=== PATIENT | male | born 1945 | race Caucasian/White ===

== ENCOUNTER 2019-08-02 14:25 | Observation (INO) ==
[2019-08-02] MEDS ORDERED: 0.9 % SODIUM CHLORIDE 1,000 ML IV ONE (14:43)
[2019-08-02] MEDS ORDERED: LACTATED RINGERS 1,000 ML IV SCH (14:45)
--- NOTE | 2019-08-02 14:47 | Emergency Department Note ---
Seizure HPI - General Chief Complaint: Seizure Stated Complaint: Seizure Time Seen by Provider: 08/02/19 14:35 Source: EMS Mode of arrival: EMS - History of Present Illness HPI Narrative: This patient apparently had a grand mal seizure and was still seizing when EMS arrived. They gave him Versed 5 mg and he is now sedated or post ictal. He is awake but not really responding much. He does have a history of a seizure disorder and takes Lamictal. - Related Data Home Medications Medication Instructions Recorded Confirmed cyanocobalamin (vitamin B-12) 100 mcg IM QMONTH ml 09/26/14 01/08/19 1,000 mcg/mL injection solution aspirin 325 mg tablet 81 mg PO QDAY tab 01/08/19 01/08/19 misoprostol 200 mcg tablet 200 mcg PO BID tab 01/08/19 01/08/19 lamotrigine 25 mg tablet 125 mg PO BID tab 03/13/19 03/13/19 Previous Rx's Medication Instructions Recorded losartan 25 mg tablet 25 mg PO QDAY #90 tab 12/21/18 lorazepam 1 mg tablet 1 mg PO ONCE PRN #7 tab 01/08/19 atorvastatin 20 mg tablet 20 mg PO QDAY #90 tab 04/30/19 citalopram 20 mg tablet 20 mg PO QDAY #90 tab 04/30/19 triamcinolone acetonide 0.5 % 1 applic TOPICAL BID #15 g 06/14/19 topical ointment furosemide 20 mg tablet 20 mg PO QDAY #90 tab 06/19/19 potassium chloride 10 mEq 10 meq PO QDAY #90 tab 06/19/19 tablet,extended release Allergies Allergy/AdvReac Type Severity Reaction Status Date / Time No Known Drug Allergies Allergy Verified 08/02/19 14:25 Review of Systems Limitations: ROS unobtainable due to patients medical condition Past Medical History - Past Medical History PMF Narrative: Medical History (Last Reviewed 03/13/19 @ 13:07 by Billy Lord PA-C) Weakness of right side of body (Chronic) Degenerative disc disease, lumbar (Chronic) Chronic low back pain (Chronic) CVA (cerebral vascular accident) (Chronic) Osteoarthritis (Chronic) Peptic ulcer disease (Resolved) Bone neoplasm (Acute) Obesity, morbid (Chronic) Pain, joint, multiple sites (Chronic 09/04/14) Gout (Resolved) Edema (Chronic 06/14/14) Gastrointestinal bleeding (Resolved) 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) Pernicious anemia (Chronic 07/15/14) Past Surgical History (Last Reviewed 03/13/19 @ 13:07 by Billy Lord PA-C) History of arthroscopy of right knee (Acute) History of gastric bypass (Acute) History of repair of left rotator cuff (Acute) S/P skin biopsy (Acute 06/11/14) Family History (Last Reviewed 03/13/19 @ 13:07 by Billy Lord PA-C) Father Chronic obstructive pulmonary disease Mother Essential hypertension Unknown Atherosclerosis of coronary artery Osteoarthrosis and allied disorders Malignant neoplasm Medical history: Denies: CHF, chronic anticoagulation (except ASA 81 qd.), DVT, DM, myocardial infarction, pulmonary embolus Psychiatric history: Reports: anxiety, depression - Social History smoking status: Former smoker Alcohol use: Reports: Daily (He drinks a clamato-beer nightly.) Drug use: Reports: none. Denies: marijuana Physical Exam Limitations: altered mental status General appearance: obtunded Head: atraumatic, normocephalic Eye: Present: normal appearance ENT: Present: normal exam Neck: Present: normal inspection Chest: Present: normal inspection Respiratory: Present: normal lung sounds bilaterally Cardiovascular: Present: regular rate, normal rhythm, normal heart sounds Abdominal: Present: soft. Absent: distention, tenderness Skin: Present: warm, dry Course Vital Signs Temperature 99.1 F H 08/02/19 14:25 Pulse Rate 94 H 08/02/19 14:25 Respiratory Rate 14 08/02/19 14:25 Blood Pressure 91/63 08/02/19 14:25 Pulse Oximetry (%) 96 08/02/19 14:25 Temperature 99.1 F H 08/02/19 14:25 Pulse Rate 59 L 08/02/19 18:37 Respiratory Rate 12 08/02/19 18:37 Blood Pressure 116/77 08/02/19 18:31 Pulse Oximetry (%) 98 08/02/19 18:37 Seizure - MDM Narrative Medical decision making narrative: This patient had another seizure during CT scan and required more Ativan for control. His CT scan is unremarkable for any new change. Patient has been on 175 mg twice a day of Lamictal I talked with his neurologist Dr. Remy Chanel he recommends to going to 200 175 for a week and then 200 twice a day. I discussed the case with the hospitalist and he will be admitted to the hospital. - Lab Data Lab results reviewed: Yes I reviewed the patient's lab results. Result diagrams: 08/02/19 15:08 08/02/19 15:08 Lab Results 08/02/19 08/02/19 08/02/19 Range/Units 15:08 15:08 15:08 WBC 9.2 (4.50-11.00) K/mcL RBC 4.34 L (4.63-6.08) M/mcL Hgb 12.6 L (13.7-17.5) g/dL Hct 39.1 L (40.1-51.0) % MCV 90.1 (80.0-100.0) fL MCH 29.0 (26.0-34.0) pg MCHC 32.2 (31.0-36.0) g/dL RDW 13.6 (11.5-14.5) % Plt Count 182 (140-440) K/mcL MPV 10.0 (7.4-10.4) fL Total Counted 100 Seg Neutrophils % 84 H (38-78) % Band Neutrophils % 1 (0-10) % Lymphocytes % 10 L (15-49) % Monocytes % (Manual) 4 (1-12) % Eosinophils % (Manual) 1 (0-7) % Platelet Estimate Normal (NORMAL) RBC Morphology Normal (NORMAL) Sodium 139 (133-145) mmol/L Potassium 3.9 (3.3-5.1) mmol/L Chloride 99 (96-108) mmol/L Carbon Dioxide 20 L (22-30) mmol/L Anion Gap 20.0 H (8-16) BUN 12 (8-23) mg/dl Creatinine 1.3 H (0.7-1.2) mg/dl GFR Calculation 53 Glucose 96 (70-105) mg/dL Calcium 8.6 (8.6-10.4) mg/dl Total Bilirubin 0.6 (0.0-1.0) mg/dL AST 13 (0-37) U/l ALT 10 (0-40) U/l Alkaline Phosphatase 94 (39-117) U/L NT-Pro-B Natriuret Pep 232.2 (0-450) pg/ml Total Protein 6.9 (5.9-8.4) gm/dL Albumin 3.8 (3.2-5.2) gm/dL Globulin 3.1 (2.2-3.7) gm/dL Albumin/Globulin Ratio 1.2 (1.0-2.3) - Radiology Data Radiology results reviewed: Yes I reviewed the patient's radiology results. Disposition Pt seen by [facility]/PA only: No Clinical Impression: Epileptic seizure Disposition: Xfer As Inpt ([facility]) Condition: Good Instructions: Epilepsy (ED) Referrals: Chase Sommer MD [Primary Care Provider] - Time of Disposition: 18:41
[2019-08-02] MEDS ORDERED: LORazepam 2 MG/ML VIAL IV ONE (15:23)
[2019-08-02] MEDS ORDERED: LORazepam 2 MG/ML VIAL ONE (15:25)
--- NOTE | 2019-08-02 15:38 | Cat Scan Report ---
CLINICAL INFORMATION: Seizure COMPARISON: Head CT without contrast 03/05/2019 TECHNIQUE: 2.5 mm helical slices were obtained in the skull base to vertex. Following reconstruction, axial reformatted images were reviewed at bone and parenchymal windows. The exam was performed using radiation dose optimization techniques including, but not limited to, automated exposure control, adjustment of the mA and/or kV according to patient size and use of iterative reconstruction technique. FINDINGS: The ventricles, sulci, fissures, and cisterns are enlarged compatible with mild atrophy - no subdural hemorrhage or extra-axial fluid collection indicated. Large remote region of encephalomalacia throughout the medial left temporal occipital lobes as before. Patchy chronic ischemic changes in the cerebral white matter are typical for age stable. There is no intracerebral hemorrhage, mass effect or edema. Bone windows show no osseous abnormality. IMPRESSION: Moderate region of encephalomalacia in the medial left temporal occipital lobe as as previously seen Mild atrophy and chronic ischemic changes in the cerebral white matter as previously seen. No acute findings. Interpreted and Authenticated by: Dennis Faustin 08/02/19
[2019-08-02 15:41] LABS: Hematocrit 39.1 % (40.1-51.0); Hemoglobin 12.6 g/dL (13.7-17.5); Mean Cell Volume 90.1 fL (80.0-100.0); Mean Corpuscular HGB Conc 32.2 g/dL (31.0-36.0); Platelet Count 182 K/mcL (140-440); RBC 4.34 M/mcL (4.63-6.08); Red Cell Distribution Width 13.6 % (11.5-14.5); WBC 9.2 K/mcL (4.50-11.00)
[2019-08-02 15:58] LABS: ALT/SGPT 10 U/l (0-40); AST/SGOT 13 U/l (0-37); Albumin 3.8 gm/dL (3.2-5.2); Albumin/Globulin Ratio 1.2 (1.0-2.3); Alkaline Phosphatase 94 U/L (39-117); Bilirubin,Total 0.6 mg/dL (0.0-1.0); Blood Urea Nitrogen 12 mg/dl (8-23); Calcium 8.6 mg/dl (8.6-10.4); Carbon Dioxide 20 mmol/L (22-30); Chloride 99 mmol/L (96-108); Globulin 3.1 gm/dL (2.2-3.7); Glomerular Filtration Rate 53; Glucose 96 mg/dL (70-105)
[2019-08-02 16:26] LABS: Band Neutrophils % 1 % (0-10); Eosinophils % (Manual) 1 % (0-7); Lymphocytes % 10 % (15-49); Monocytes % (Manual) 4 % (1-12); Platelet Estimate NORMAL (NORMAL); RBC Morphology NORMAL (NORMAL); Segmented Neutrophils % 84 % (38-78)
[2019-08-02] MEDS ORDERED: LACTATED RINGERS 1,000 ML IV ONE (16:59)
--- NOTE | 2019-08-02 19:26 | Internal Med History&Physical ---
Medical - H&P: [facility] Patient information: Note initiated : 08/02/19 at 7:23 pm Service Date, if different from initiated Date: [] Patient: Ilir Mejía 74 y/o M admitted on for Seizure. Chief Complaint: [] History of present illness: Mr. Mejía is a 74 year old M Presented to the ED for seizure. History is obtained from chart as patient is sedated from medication. Per EMS patient arrived had a seizure at home report is mild tonic-clonic like activity he was given 5 of Versed patient was drowsy, and in the ED. Patient was taken to CT and had another seizure during CT and was given 1 mg of Ativan. Eventually patient started waking up and moving his head around a bit more responsiveness to voice but still is unable answer questions and speak. When I examined the patient he seemed quite drowsy. He seemed to really awaken to loud voice but unable to gather history from him as he was not verbalizing/ answering questions. ED physician discussed the case with his neurologist Dr. Chanel who is been ti ghtening trading up his Lamictal. He is currently 175 mg twice daily. She recommended to continue titrating up as opposed to adding a second agent. She requested going to 200 at night and 175 in the morning. And then after week going to 200 twice daily. The brain was done which showed no acute abnormalities it showed encephalomalacia from a previous stroke. Unable to gather review of systems given the patient's current mental status. 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) Pernicious anemia (Chronic 07/15/14) Past Surgical History (Last Reviewed 03/13/19 @ 13:07 by Billy Lord PA-C) History of arthroscopy of right knee (Acute) History of gastric bypass (Acute) History of repair of left rotator cuff (Acute) S/P skin biopsy (Acute 06/11/14) Family History (Last Reviewed 03/13/19 @ 13:07 by Billy Lord PA-C) Father Chronic obstructive pulmonary disease Mother Essential hypertension Unknown Atherosclerosis of coronary artery Osteoarthrosis and allied disorders Malignant neoplasm Social History (Last Updated 03/13/19 @ 13:09 by Billy Lord PA-C) 20 pack smoking history is quit sometime ago Drinks of beer daily Lives with family. Medical - H&P: Meds Home Medications Medication Instructions Recorded Confirmed Type cyanocobalamin (vitamin B-12) 100 mcg IM QMONTH ml 09/26/14 01/08/19 History 1,000 mcg/mL injection solution losartan 25 mg tablet 25 mg PO QDAY #90 tab 12/21/18 01/08/19 Rx aspirin 325 mg tablet 81 mg PO QDAY tab 01/08/19 01/08/19 History lorazepam 1 mg tablet 1 mg PO ONCE PRN #7 tab 01/08/19 01/08/19 Rx misoprostol 200 mcg tablet 200 mcg PO BID tab 01/08/19 01/08/19 History lamotrigine 25 mg tablet 125 mg PO BID tab 03/13/19 03/13/19 History atorvastatin 20 mg tablet 20 mg PO QDAY #90 tab 04/30/19 Rx citalopram 20 mg tablet 20 mg PO QDAY #90 tab 04/30/19 Rx triamcinolone acetonide 0.5 % 1 applic TOPICAL BID #15 g 06/14/19 Rx topical ointment furosemide 20 mg tablet 20 mg PO QDAY #90 tab 06/19/19 Rx potassium chloride 10 mEq 10 meq PO QDAY #90 tab 06/19/19 Rx tablet,extended release Allergies Allergy/AdvReac Type Severity Reaction Status Date / Time No Known Drug Allergies Allergy Verified 08/02/19 14:25 Medical - H&P: Exam - Constitutional Vitals: Temp Pulse Resp BP Pulse Ox 99.1 F H 59 L 12 116/77 98 08/02/19 14:25 08/02/19 18:37 08/02/19 18:37 08/02/19 18:31 08/02/19 18:37 Exam: General: Drowsy, No acute Distress Eyes/N/T: EOMI, PERRL Head/Neck: neck supple, normocephalic atraumatic CV: RRR, No murmurs, normal s1/s2 Pulm: Clear b/l, no wheezing/rhonchi/rales Abd: soft, nontender, +BS x4 Ext: no clubbing/cyanosis/edema Neuro: Drowsy, moves all extremities to touch. he does sound assistant b/l to command and is equally, wiggles toes to command but would not answer questions. He makes brief eye contact with loud voice and then falls back asleep. Skin: warm/dry Medical - H&P: Reslt - Labs CBC & Chem 7: 08/02/19 15:08 08/02/19 15:08 Labs: Short CBC 08/02/19 Range/Units 15:08 WBC 9.2 (4.50-11.00) K/mcL Hgb 12.6 L (13.7-17.5) g/dL Hct 39.1 L (40.1-51.0) % Plt Count 182 (140-440) K/mcL BMP 08/02/19 15:08 Sodium 139 Potassium 3.9 Chloride 99 Carbon Dioxide 20 L BUN 12 Creatinine 1.3 H Glucose 96 Calcium 8.6 Liver Function 08/02/19 Range/Units 15:08 Total Bilirubin 0.6 (0.0-1.0) mg/dL AST 13 (0-37) U/l ALT 10 (0-40) U/l Alkaline Phosphatase 94 (39-117) U/L Albumin 3.8 (3.2-5.2) gm/dL Medical - H&P: A/P - Narrative A/P Narrative: A: *Seizure (h/o Sz d/o): -CT brain no acute pathology but showed encephalomalacia from previous stroke -follows with Dr. Chanel *Encephalopathy: 2/2 above post-ictal + sedation medication *BUBBA on CKD II: *h/o CVA x2 *HTN/HLD: *Anemia, chronic *Depression/anxiety: *GERD/PUD: * P: -case discussed with his neurologist (Dr. Chanel) who recommended increasing lamictal from 175 bid to 175 in AM and 200 in PM. -prn IV ativan -pending lamictal level -cont home ASA/Statin -cont SSRI -hold lasix for now -IVF's while poor oral intake -pt/ot -ppx: lovenox
[2019-08-02] MEDS ORDERED: POTASSIUM CHLORIDE 40 MEQ in DEXTROSE 5% IN WATER 500 ML IV PRN (21:51)
[2019-08-02] MEDS ORDERED: lamoTRIgine 100 MG TABLET PO SCH (21:51)
[2019-08-02] MEDS ORDERED: ACETAMINOPHEN 325 MG TABLET PO PRN (21:51)
[2019-08-02] MEDS ORDERED: MAGNESIUM SULFATE 2 GM/50 ML BAG IV PRN (21:51)
[2019-08-02] MEDS ORDERED: 0.9 % SODIUM CHLORIDE 1,000 ML IV SCH (21:51)
[2019-08-02] MEDS ORDERED: ONDANSETRON 4 MG/2 ML VIAL IV PRN (21:51)
[2019-08-02] MEDS ORDERED: POTASSIUM CHLORIDE 20 MEQ TABLET PO PRN ×2 (21:51)
[2019-08-02] MEDS ORDERED: SENNOSIDES 1 TABLET PO PRN (21:51)
[2019-08-02] MEDS ORDERED: POLYETHYLENE GLYCOL 3350 17 GM PACKET PO PRN (21:51)
[2019-08-02] MEDS ORDERED: LORazepam 2 MG/ML VIAL IV PRN (21:51)
[2019-08-02] MEDS ORDERED: IPRATROPIUM/ALBUTEROL 3 ML AMPUL.NEB NEB PRN (21:51)
[2019-08-02] MEDS: 0.9 % SODIUM CHLORIDE 10 ML SYRINGE IV SCH (22:00)
[2019-08-02] MEDS: FAMOTIDINE/PF 20 MG/2 ML VIAL IV SCH (22:59)
[2019-08-02 23:41] LABS: Appearance,Urine CLEAR; Bacteria,Urine 0 /hpf (0); Bilirubin,Urine NEG (NEG); Color,Urine YELLOW; Culture Indicated,Urine NO; Glucose,Urine (UA) NEGATIVE (NEG); Ketones,Urine NEG (NEG); Leukocyte Esterase,Urine NEG /uL (NEG); Mucus,Urine MOD /hpf (0); Nitrate,Urine NEG (NEG); Protein,Urine 30 mg/dL (NEG); Urine Blood NEG mg/dL (<0.03); Urine Hyaline Cast 18 /lpf (0-2); Urine RBC 0 /hpf (0-1); Urine Squamous Epithelial Cell 0 /hpf (0-4); Urine WBC 3 /hpf (0-4); Urobilinogen,Urine NEG (NEG)
[2019-08-03] MEDS: 0.9 % SODIUM CHLORIDE 10 ML SYRINGE IV SCH (04:04)
[2019-08-03 06:26] LABS: ALT/SGPT 7 U/l (0-40); AST/SGOT 10 U/l (0-37); Albumin/Globulin Ratio 1.1 (1.0-2.3); Alkaline Phosphatase 84 U/L (39-117); Bilirubin,Direct < 0.2 mg/dL (0.0-0.3); Bilirubin,Total 0.6 mg/dL (0.0-1.0); Blood Urea Nitrogen 10 mg/dl (8-23); Calcium 8.3 mg/dl (8.6-10.4); Chloride 104 mmol/L (96-108); Globulin 2.7 gm/dL (2.2-3.7); Glucose 90 mg/dL (70-105); Lactate Dehydrogenase 143 U/L (94-250); Phosphorous 3.3 mg/dL (2.7-4.5); Triglycerides 54 mg/dl (<150); Uric Acid 6.5 mg/dL (2.5-8.0)
[2019-08-03 06:30] LABS: Carbon Dioxide 26 mmol/L (22-30); Glomerular Filtration Rate 73
--- NOTE | 2019-08-03 07:49 | Internal Med Progress Note ---
Medical - PN: Subj Patient information: Note initiated : 08/03/19 at 7:46 am Service Date, if different from initiated Date: [] Patient: Ilir Mejía 74 y/o M admitted on 08/02/19 for Seizure. Chief Complaint: [] Interval history: Mr. Mejía is a 74 year old M Presented to the ED for seizure. History is obtained from chart as patient is sedated from medication. Per EMS patient arrived had a seizure at home report is mild tonic-clonic like activity he was given 5 of Versed patient was drowsy, and in the ED. Patient was taken to CT and had another seizure during CT and was given 1 mg of Ativan. Eventually patient started waking up and moving his head around a bit more responsiveness to voice but still is unable answer questions and speak. When I examined the patient he seemed quite drowsy. He seemed to really awaken to loud voice but unable to gather history from him as he was not verbalizing/a nswering questions. ED physician discussed the case with his neurologist Dr. Chanel who is been tig htening trading up his Lamictal. He is currently 175 mg twice daily. She recommended to continue titrating up as opposed to adding a second agent. She requested going to 200 at night and 175 in the morning. And then after week going to 200 twice daily. The brain was done which showed no acute abnormalities it showed encephalomalacia from a previous stroke. 08/02 - Constitutional Vitals: Vital Signs Temp Pulse Resp BP Pulse Ox 98.9 F 60 16 109/65 95 08/03/19 04:00 08/03/19 04:00 08/03/19 04:00 08/03/19 04:00 08/03/19 04:00 Period Temp Pulse Resp BP Sys/Overton Pulse Ox Last 24 Hr 97.7 F-99.1 F 55-94 12-18 91-139/63-99 94-100 Intake and Output 08/02/19 08/03/19 08/03/19 21:59 05:59 13:59 Intake Total 1999 40 Output Total 550 Balance 1999 - Weight 83.915 kg 83.915 kg Intake & Output: Intake & Output 08/02/19 08/03/19 08/03/19 21:59 05:59 13:59 Intake Total 1999 40 Output Total 550 Balance 1999 Weight 83.915 kg 83.915 kg Intake: IV 2000 Lactated Ringers 1,000 ml @ 2000 Wide Open IV BOLUS ONE Rx#: [id number] Oral 40 Output: Void Amount 550 Other: Urine Appearance Clear Urine Color Dark Yellow Exam: General: Drowsy, No acute Distress Eyes/N/T: EOMI, Head/Neck: neck supple, CV: RRR, No murmurs, Pulm: Clear b/l, no wheezing/rhonchi/rales Abd: soft, nontender, +BS x4 Ext: no clubbing/cyanosis/edema Neuro: Drowsy, moves all extremities to touch. he does it administrative assistant b/l to command and is equally, wiggles toes to command but would not answer questions. He makes brief eye contact with loud voice and then falls back asleep. Skin: warm/dry Medical - PN: Obj Da - Labs CBC & Chem 7: 08/02/19 15:08 08/03/19 05:10 Labs: Abnormal Lab Results 08/03/19 08/02/19 08/02/19 05:10 22:40 15:08 RBC Hgb Hct Seg Neutrophils % Lymphocytes % Carbon Dioxide 20 L Anion Gap 20.0 H Creatinine 1.3 H Calcium 8.3 L Total Protein 5.7 L Albumin 3.0 L Urine Protein 30 A Hyaline Casts 18 H 08/02/19 15:08 RBC 4.34 L Hgb 12.6 L Hct 39.1 L Seg Neutrophils % 84 H Lymphocytes % 10 L Carbon Dioxide Anion Gap Creatinine Calcium Total Protein Albumin Urine Protein Hyaline Casts Meds: Medications Acetaminophen (Tylenol) 650 mg PO Q6HP PRN PRN Reason: PAIN/FEVER > 101 Albuterol/Ipratropium (Duoneb) 3 ml NEB Q4HP PRN PRN Reason: Shortness Of Breath Enoxaparin Sodium (Lovenox) 40 mg SQ DAILY JESUS Famotidine (Pepcid) 20 mg IV Q12 JESUS Last Admin: 08/02/19 22:59 Dose: 20 mg Documented by: Potassium Chloride 40 meq/ (Dextrose) 520 mls @ 130 mls/hr IV UD PRN PRN Reason: Potassium < 3 Magnesium Sulfate (Magnesium Sulfate) 2 gm in 50 mls @ 50 mls/hr IV UD PRN PRN Reason: Magnesium </= 1.6 Sodium Chloride (Sodium Chloride 0.9%) 1,000 mls @ 80 mls/hr IV .[id number] [facility] Stop: 08/03/19 10:20 Last Admin: 08/02/19 22:01 Dose: 80 mls/hr Documented by: Lamotrigine (Lamictal) 200 mg PO QHS [facility] Last Admin: 08/02/19 22:59 Dose: 200 mg Documented by: Lamotrigine (Lamictal) 175 mg PO QAM [facility] Lorazepam (Ativan) 1 - 2 mg IV Q2-4HP PRN PRN Reason: Seizure Activity Ondansetron HCl (Zofran) 4 mg IV Q4HP PRN PRN Reason: Nausea And Vomiting Polyethylene Glycol (Miralax) 17 gm PO DAILYP PRN PRN Reason: Constipation Potassium Chloride (Kdur) 40 meq PO UD PRN PRN Reason: Potssium is 3-3.5 Potassium Chloride (Kdur) 40 meq PO UD PRN PRN Reason: Potassium < 3 Senna (Senokot) 2 tab PO DAILYP PRN PRN Reason: Constipation Sodium Chloride (Saline Flush) 10 ml IV Q8 [facility] Last Admin: 08/03/19 04:04 Dose: Not Given Documented by: Medical - PN: A/P - Time Spent With Patient Total time spent is greater than 50% in coordination of care (as documented) at patient's floor/unit and/or counseling patient: - Narrative A/P Narrative: A: *Seizure (h/o Sz d/o): -CT brain no acute pathology but showed encephalomalacia from previous stroke -follows with Dr. 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 Chanel) who recommended increasing lamictal from 175 bid to 175 in AM and 200 in PM. -prn IV ativan -pending lamictal level -cont home ASA/Statin -cont SSRI -hold lasix for now -d/c IVF's and cont diet -pt/ot
[2019-08-03] MEDS ORDERED: ENOXAPARIN 40 MG/0.4 ML SYRINGE SQ SCH (09:00)
[2019-08-03] MEDS ORDERED: lamoTRIgine 25 MG TABLET PO SCH (09:00)
[2019-08-03] MEDS: FAMOTIDINE/PF 20 MG/2 ML VIAL IV SCH (09:05)
--- NOTE | 2019-08-03 09:07 | Discharge Summary ---
Medical - DS: Prov Patient information: Note initiated : 08/03/19 at 9:01 am Service Date, if different from initiated Date: [] Patient: Ilir Mejía 74 y/o M admitted on 08/02/19 for Seizure. Chief Complaint: [] Date of admission: 08/02/19 21:39 Discharge date: 08/03/19 Primary care physician: Chase Sommer Consults: 08/02/19 Consult to Physician [CONS] Stat Comment: Consulting Provider: Miguel Gregg Reason For Exam: Physician to Consult Medical - DS: Meds - Discharge Medications Prescriptions: lamoTRIgine [Lamictal] 200 mg PO QHS #30 tab [facility]: [email or web address] lamoTRIgine [Lamotrigine] 175 mg PO QAM #1 tab Transmission Status: Pending to [facility] 2005 Active and Home Medications: Home Medications lamotrigine 25 mg tablet 175 mg PO BID tab 03/13/19 [History Confirmed 03/13/19 Last Taken Unknown] other meds to be verified Home Medications lamoTRIgine [Lamictal] 200 mg PO QHS #30 tab 08/03/19 [Rx Last Taken Unknown] lamoTRIgine [Lamotrigine] 175 mg PO QAM #1 tab 08/03/19 [Rx Last Taken Unknown] other meds to be verified Medical - DS: Hosp Hospital Course: Mr. Mejía is a 74 year old M Presented to the ED for seizure. History is obtained from chart as patient is sedated from medication. Per EMS patient arrived had a seizure at home report is mild tonic-clonic like activity he was given 5 of Versed patient was drowsy, and in the ED. Patient was taken to CT and had another seizure during CT and was given 1 mg of Ativan. Eventually patient started waking up and moving his head around a bit more responsiveness to voice but still is unable answer questions and speak. When I examined the patient he seemed quite drowsy. He seemed to really awaken to loud voice but unable to gather history from him as he was not verbalizing/answering questions. ED physician discussed the case with his neurologist Dr. Chanel who is been tightening trading up his Lamictal. He is currently 175 mg twice daily. She recommended to continue titrating up as opposed to adding a second agent. She r equested going to 200 at night and 175 in the morning. And then after week going to 200 twice daily. The brain was done which showed no acute abnormalities it showed encephalomalacia from a previous stroke. 5/2 Alert and awake answering questions appropriately. As discussed in the ED will make the adjustments to his Lamictal per Dr. Chanel. A: *Seizure (h/o Sz d/o): -CT brain no acute pathology but showed encephalomalacia from previous stroke -follows with Dr. Chanel -case discussed with his neurologist (Dr. Chanel) who recommended increasing lamictal from 175 bid to 175 in AM and 200 in PM for one week then 200mg twice daily. *Encephalopathy(Somnolence/Confusion): 2/2 above post-ictal + sedation medication -resolved *BUBBA on CKD II: resolved *h/o CVA x2 *HTN/HLD: *Anemia, chronic *Depression/anxiety: *GERD/PUD: * Discharge diagnosis: Seizure encephalopathy acute kidney injury Secondary discharge diagnosis: History of stroke hypertension anemia depression anxiety GERD - Time Spent with Patient Total time spent providing and/or coordinating discharge services: Greater than 30 minutes Medical - DS: Exam - Constitutional Vitals: Vital Signs Temp Pulse Pulse Resp BP BP BP 08/03/19 08:00 97.5 F 14 141/92 08/03/19 04:00 98.9 F 60 16 109/65 08/02/19 23:46 97.7 F 55 L 18 124/73 08/02/19 21:51 97.8 F 56 L 18 123/68 08/02/19 20:31 13 119/76 08/02/19 20:01 13 105/75 08/02/19 19:46 13 108/68 08/02/19 19:31 14 115/74 08/02/19 19:16 60 13 114/99 08/02/19 19:01 61 14 124/77 08/02/19 18:46 61 13 119/77 08/02/19 18:37 59 L 12 08/02/19 18:31 61 13 116/77 08/02/19 18:16 60 16 135/75 08/02/19 18:01 60 12 126/80 08/02/19 17:46 61 12 139/78 08/02/19 17:31 60 13 103/72 05/01/20 17:16 59 L 13 103/70 08/02/19 17:01 63 13 117/79 08/02/19 16:47 66 12 08/02/19 16:46 66 12 108/70 08/02/19 16:31 69 13 104/71 08/02/19 16:16 69 13 105/66 08/02/19 16:01 71 13 93/66 08/02/19 15:46 72 13 93/63 08/02/19 15:35 75 14 100/67 08/02/19 15:34 74 08/02/19 15:16 13 99/71 08/02/19 15:01 14 93/64 08/02/19 14:48 15 91/08/02/19 14:46 15 /08/02/19 14:37 89 16 08/02/19 14:25 99.1 F H 94 H 14 Pulse Ox 08/03/19 08:00 95 08/03/19 04:00 95 08/02/19 23:46 100 08/02/19 21:51 99 08/02/19 20:31 08/02/19 20:01 08/02/19 19:46 08/02/19 19:31 08/02/19 19:16 97 08/02/19 19:01 96 08/02/19 18:46 96 08/02/19 18:37 98 08/02/19 18:31 97 08/02/19 18:16 99 08/02/19 18:01 100 08/02/19 17:46 100 08/02/19 17:31 95 08/02/19 17:16 95 08/02/19 17:01 97 08/02/19 16:47 97 08/02/19 16:46 94 08/02/19 16:31 94 08/02/19 16:16 94 08/02/19 16:01 95 08/02/19 15:46 94 08/02/19 15:35 96 08/02/19 15:34 95 08/02/19 15:16 08/02/19 15:01 08/02/19 14:48 08/02/19 14:46 08/02/19 14:37 97 08/02/19 14:25 96 Intake and Output 08/02/19 08/03/19 08/03/19 21:59 05:59 13:59 Intake Total 1999 40 Output Total 550 Balance 1999 - Intake: IV 1999 Lactated Ringers 1,000 ml @ 2000 Wide Open IV BOLUS ONE Rx#: [id number] Oral 40 Output: Void Amount 550 Other: Urine Appearance Clear Urine Color Dark Yellow Weight 83.915 kg 83.915 kg Medical - DS: Data Labs on day of discharge: Labs from last 24 hours 08/03/19 08/02/19 08/02/19 05:10 22:40 15:08 WBC RBC Hgb Hct MCV MCH MCHC RDW Plt Count MPV Total Counted Seg Neutrophils % Band Neutrophils % Lymphocytes % Monocytes % (Manual) Eosinophils % (Manual) Platelet Estimate RBC Morphology Sodium 140 Potassium 3.8 Chloride 104 Carbon Dioxide 26 Anion Gap 10.0 BUN 10 Creatinine 1.0 GFR Calculation 73 Glucose 90 Uric Acid 6.5 Calcium 8.3 L Phosphorus 3.3 Magnesium 2.0 Total Bilirubin 0.6 Direct Bilirubin < 0.2 GGT 11 AST 10 ALT 7 Alkaline Phosphatase 84 Lactate Dehydrogenase 143 NT-Pro-B Natriuret Pep 232.2 Total Protein 5.7 L Albumin 3.0 L Globulin 2.7 Albumin/Globulin Ratio 1.1 Triglycerides 54 Urine Color Yellow Urine Appearance Clear Urine pH 5.0 Ur Specific [place] 1.020 Urine Protein 30 A Urine Glucose (UA) Negative Urine Ketones Neg Urine Occult Blood Neg Urine Nitrate Neg Urine Bilirubin Neg Urine Urobilinogen Neg Ur Leukocyte Esterase Neg Urine RBC 0 Urine WBC 3 Ur Squamous Epith Cells 0 Urine Bacteria 0 Hyaline Casts 18 H Urine Mucus Mod Ur Culture Indicated? No Lamotrigine 08/02/19 08/02/19 08/02/19 15:08 15:08 15:08 WBC 9.2 RBC 4.34 L Hgb 12.6 L Hct 39.1 L MCV 90.1 MCH 29.0 MCHC 32.2 RDW 13.6 Plt Count 182 MPV 10.0 Total Counted 100 Seg Neutrophils % 84 H Band Neutrophils % 1 Lymphocytes % 10 L Monocytes % (Manual) 4 Eosinophils % (Manual) 1 Platelet Estimate Normal RBC Morphology Normal Sodium 139 Potassium 3.9 Chloride 99 Carbon Dioxide 20 L Anion Gap 20.0 H BUN 12 Creatinine 1.3 H GFR Calculation 53 Glucose 96 Uric Acid Calcium 8.6 Phosphorus Magnesium Total Bilirubin 0.6 Direct Bilirubin GGT AST 13 ALT 10 Alkaline Phosphatase 94 Lactate Dehydrogenase NT-Pro-B Natriuret Pep Total Protein 6.9 Albumin 3.8 Globulin 3.1 Albumin/Globulin Ratio 1.2 Triglycerides Urine Color Urine Appearance Urine pH Ur Specific [place] Urine Protein Urine Glucose (UA) Urine Ketones Urine Occult Blood Urine Nitrate Urine Bilirubin Urine Urobilinogen Ur Leukocyte Esterase Urine RBC Urine WBC Ur Squamous Epith Cells Urine Bacteria Hyaline Casts Urine Mucus Ur Culture Indicated? Lamotrigine Pending Medical - DS: A/P - Patient/Caregiver Discharge Instructions Activity: increase activity as tolerated Diet: Regular Diet - Follow up Plan Follow up with: Chase Sommer MD [Primary Care Provider] - Remy Chanel MD [Physician] - Disposition: Home, Self-Care Prognosis: Fair Rehab Potential: Fair
== END 2019-08-03 10:25 | disposition home or self-care (01) ==
LOC: ED 14:25 → ICU 14:25
PROVIDERS: ADMIT Internal Medicine; ATTEND Internal Medicine

== ENCOUNTER 2021-02-01 19:22 | Inpatient (IN) ==
[2021-02-01 20:33] LABS: Basophils # (Auto) 0.05 K/mcL (0.00-0.30); Basophils % (Auto) 0.5 % (0.0-2.0); Eosinophils # (Auto) 0.21 K/mcL (0.00-0.70); Hematocrit 40.4 % (40.1-51.0); Hemoglobin 12.9 g/dL (13.7-17.5); Lymphocytes # (Auto) 1.83 K/mcL (1.50-4.80); Lymphocytes % (Auto) 17.1 % (15.5-49.0); Mean Cell Volume 91.8 fL (80.0-100.0); Mean Corpuscular HGB Conc 31.9 g/dL (31.0-36.0); Mean Platelet Volume 9.9 fL (7.4-10.4); Monocytes # (Auto) 0.65 K/mcL (0.10-0.90); Monocytes % (Auto) 6.1 % (1.0-12.0); Neutrophils % (Auto) 74.3 % (38.0-78.0); Platelet Count 273 K/mcL (140-440); WBC 10.7 K/mcL (4.5-11.0)
[2021-02-01 20:42] LABS: ALT/SGPT 12 U/L (<40); AST/SGOT 18 U/L (<40); Albumin 3.7 gm/dL (3.2-5.2); Albumin/Globulin Ratio 1.2 (1.0-2.3); Alkaline Phosphatase 189 U/L (39-117); Bilirubin,Total 0.6 mg/dL (0.1-1.0); Blood Urea Nitrogen 17 mg/dL (8-23); Calcium 8.9 mg/dL (8.6-10.4); Carbon Dioxide 28 mmol/L (22-30); Chloride 101 mmol/L (96-108); Globulin 3.1 gm/dL (2.2-3.7); Glomerular Filtration Rate 48; Glucose 75 mg/dL (70-105)
[2021-02-01 21:38] LABS: Appearance,Urine HAZY (Clear); Bilirubin,Urine Negative (Negative); Color,Urine Yellow; Culture Indicated,Urine No; Glucose,Urine (UA) Negative (Negative); Ketones,Urine 5 mg/dL (Negative); Leukocyte Esterase,Urine Negative /uL (Negative); Nitrate,Urine Negative (Negative); Protein,Urine 30 mg/dL (Negative); Specific Gravity,Urine 1.023 (1.000-1.035); Urine Blood >=1.0 mg/dL (Negative); Urine RBC < 1 /hpf (0-3); Urine Squamous Epithelial Cell 0 /hpf (0-4); Urine WBC 0 /hpf (0-4)
[2021-02-01 21:39] LABS: Thyroid Stimulating Hormone 2.01 uIU/mL (0.27-5.01)
--- NOTE | 2021-02-01 23:42 | Internal Med History&Physical ---
HPI History of Present Illness Patient information: Note initiated : 02/01/21 at 11:35 pm Service Date, if different from initiated Date: [] Patient: Ilir Mejía 75 y/o M admitted on 02/01/21 for fall from standing position. Chief Complaint: [tremors and falls] History of present illness: Mr. Mejía is a 75 year old M comes in with his Sarah and daughter in law Mitali. other caregiver is Lissette a daughter. The pt has history of CVA 3 years ago with personality change and loss of function. He has had seizure disorder since that time. Recently he has had tremors and also falls. Been to EMD multiple times and also admitted to [facility] a couple weeks ago. Still falling but nothing discovered. Today Dr. Archibald found EKG changes related to tremors but ultimated was artifact. The patient has however both been having tremors possible focal seizures. Also has had bradycardia on tele and occ PVC. more unifocal. Pt is terrible historian and also hard of hearing. History is from family at bedside. Sarah says pt should be full code and pt also said he would want full code. Review of Systems ROS unobtainable: due to mental status Review of systems: family tells me no known, [place]. He has had CVA. pt has not had diarrhea or hematochezia Resp no cough fever Cardiovascular Cardiovascular: Absent chest pain Gastrointestinal Gastrointestinal: Absent diarrhea, dysphagia and vomiting Psychiatric Psychiatric: Present anxiety and depression Hematologic/Lymphatic Hematologic/Lymphatic: Absent easy bleeding PFSH PFSH All Active Problems (Updated 02/01/21 @ 23:52 by Mir West MD) Bradycardia with 41-50 beats per minute (Acute) Weakness (Acute) Bronchitis (Acute) Falls frequently (Acute) Medicare annual wellness visit, initial (Acute) Lower extremity weakness (Acute) Depression (Acute) At high risk for falls (Acute) Right knee DJD (Acute) Annual physical exam (Acute) DMII (diabetes mellitus, type 2) (Acute) Medicare annual wellness visit, initial (Acute) Speech abnormality (Acute) Seizure (Acute) Edema, peripheral (Acute) Elevated temperature (Acute) Epileptic seizure (Acute) Weakness of right side of body (Chronic) Degenerative disc disease, lumbar (Chronic) Chronic low back pain (Chronic) CVA (cerebral vascular accident) (Chronic) Osteoarthritis (Chronic) Bone neoplasm (Acute) Obesity, morbid (Chronic) Pain, joint, multiple sites (Chronic 09/04/14) Edema (Chronic 06/14/14) 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) Pernicious anemia (Chronic 07/15/14) Medical History Annual physical exam At high risk for falls Bone neoplasm Chronic low back pain CVA (cerebral vascular accident) 2016, February; and 2017 Degenerative disc disease, lumbar Degenerative joint disease (DJD) of hip bilateral hip Depression DMII (diabetes mellitus, type 2) Edema (06/14/14) Gastrointestinal bleeding Gout Lower extremity weakness Medicare annual wellness visit, initial Medicare annual wellness visit, initial Obesity, morbid Osteoarthritis Pain, joint, multiple sites (09/04/14) Peptic ulcer disease Pernicious anemia (07/15/14) Right knee DJD Weakness of right side of body Due to previous CVA Surgical History History of arthroscopy of right knee History of gastric bypass History of repair of left rotator cuff S/P skin biopsy (06/11/14) skin lesion-right upper forehead 2.1cm Family History Father , 76 Chronic obstructive pulmonary disease Mother Essential hypertension Unknown Atherosclerosis of coronary artery Osteoarthrosis and allied disorders Malignant neoplasm Social History (Updated 01/08/21 @ 13:09 by Shira Mcmullen CMA) marital status: education level: college occupational status: retired other: 4 children 5 grandchildren 1 great grandcild smoking status: Former smoker smoking status stop date: 04/03/99 alcohol intake frequency: does not drink substance use type: does not use MEDS/ALLERGIES Home Medications and Allergies Home Medications Medication Instructions Recorded Confirmed Type misoprostol 200 mcg tablet 200 mcg PO BID tab 01/08/19 01/19/21 History aspirin 81 mg tablet,delayed 81 mg PO QDAY 01/03/20 10/22/20 History release cholecalciferol (vitamin D3) 50 50 mcg PO QDAY 01/03/20 10/22/20 History mcg (2,000 unit) capsule cyanocobalamin (vitamin B-12) 1,000 mcg PO QDAY 01/03/20 10/22/20 History 1,000 mcg capsule triamcinolone acetonide 0.5 % 1 applic TOPICAL BID #15 g 01/03/20 10/22/20 Rx topical ointment losartan 25 mg tablet 25 mg PO QDAY #90 tab 02/04/20 01/19/21 Rx Four-wheeled walker with seat #1 ea 06/11/20 10/22/20 Rx lamotrigine 200 mg tablet 200 mg PO BID #180 tab 06/17/20 01/19/21 Rx lamotrigine 25 mg tablet 50 mg PO BID 90 Days #360 tab 06/17/20 01/19/21 Rx escitalopram oxalate 10 mg tablet 10 mg PO QDAY #90 tab 10/22/20 01/19/21 Rx atorvastatin 20 mg tablet 20 mg PO QDAY #90 tab 11/03/20 01/19/21 Rx furosemide 20 mg tablet 20 mg PO QDAY #90 tab 12/08/20 01/19/21 Rx divalproex 250 mg tablet,delayed 250 mg PO Q12H tab 01/08/21 01/19/21 History release lidocaine 5 % topical patch 1 patch TOPICAL QDAY #15 ea 01/08/21 01/08/21 Rx potassium chloride 10 mEq 10 meq PO QDAY #90 tab 01/12/21 01/19/21 Rx tablet,extended release Allergies Allergy/AdvReac Type Severity Reaction Status Date / Time No Known Drug Allergies Allergy Verified 01/19/21 18:05 EXAM Constitutional Vitals: Temp Pulse Resp BP Pulse Ox 98.0 F 52 L 11 L 117/67 100 02/01/21 19:23 02/01/21 22:48 02/01/21 22:48 02/01/21 22:41 02/01/21 22:48 Additional findings Additional findings: GEN WD chronically ill WM in bed. He has frequent raised arms stiff and jerking like repeated pointing with half formed pointing hand right side more but occasionally both. can become vigorous. Pt able to partial control. is rhymic like a seizure CVRRR Lungs CTA Abd soft NT Calve no edema skin warm and dry mentation alert and oriented to person hard of hearing not completely reliable but follow some commands slowly. DATA Data Completed and Pending Labs: Labs from last 24 hours 02/01/21 02/01/21 02/01/21 20:21 19:53 19:53 WBC RBC Hgb Hct MCV MCH MCHC RDW Plt Count MPV Neut % (Auto) Lymph % (Auto) [place] % (Auto) Eos % (Auto) Baso % (Auto) Lymph # (Auto) [place] # (Auto) Eos # (Auto) Baso # (Auto) Absolute Neutrophils Sodium Potassium Chloride Carbon Dioxide Anion Gap BUN Creatinine GFR Calculation Glucose Calcium Magnesium 2.1 Total Bilirubin AST ALT Alkaline Phosphatase Troponin T 0.02 Total Protein Albumin Globulin Albumin/Globulin Ratio TSH 2.01 Urine Color Yellow Urine Appearance Hazy A Urine pH 5.0 Ur Specific [place] 1.023 Urine Protein 30 A Urine Glucose (UA) Negative Urine Ketones 5 A Urine Occult Blood >=1.0 A Urine Nitrate Negative Urine Bilirubin Negative Urine Urobilinogen 4.0 A Ur Leukocyte Esterase Negative Urine RBC < 1 Urine WBC 0 Ur Squamous Epith Cells 0 Urine Bacteria None Ur Culture Indicated? No 02/01/21 02/01/21 19:53 19:53 WBC 10.7 RBC 4.40 L Hgb 12.9 L Hct 40.4 MCV 91.8 MCH 29.3 MCHC 31.9 RDW 14.0 Plt Count 273 MPV 9.9 Neut % (Auto) 74.3 Lymph % (Auto) 17.1 [place] % (Auto) 6.1 Eos % (Auto) 2.0 Baso % (Auto) 0.5 Lymph # (Auto) 1.83 [place] # (Auto) 0.65 Eos # (Auto) 0.21 Baso # (Auto) 0.05 Absolute Neutrophils 7.96 Sodium 140 Potassium 3.4 Chloride 101 Carbon Dioxide 28 Anion Gap 11.0 BUN 17 Creatinine 1.4 H GFR Calculation 48 Glucose 75 Calcium 8.9 Magnesium Total Bilirubin 0.6 AST 18 ALT 12 Alkaline Phosphatase 189 H Troponin T Total Protein 6.8 Albumin 3.7 Globulin 3.1 Albumin/Globulin Ratio 1.2 TSH Urine Color Urine Appearance Urine pH Ur Specific [place] Urine Protein Urine Glucose (UA) Urine Ketones Urine Occult Blood Urine Nitrate Urine Bilirubin Urine Urobilinogen Ur Leukocyte Esterase Urine RBC Urine WBC Ur Squamous Epith Cells Urine Bacteria Ur Culture Indicated? A/P Assessment and plan (1) Seizure: Status: Acute Comment: possibly partial or focal seizures will treat with valium and see if this stops the attacks. if it does with alter anti seizure med he is on (2) CVA (cerebral vascular accident): Status: Chronic Comment: 2016, February; and 2018 left parietal occipital encephalomalacia noted. Qualifiers: CVA mechanism: occlusion Precerebral and cerebral artery: middle cerebral artery Laterality of affected vessel: left Qualified Code(s): I63.512 - Cerebral infarction due to unspecified occlusion or stenosis of left middle cerebral artery (3) Falls frequently: Status: Acute Comment: unclear if this is seizures or bradycardia related. will start therapy in morning. (4) Bradycardia with 41-50 beats per minute: Status: Acute Comment: will monitor on telemetry Time Spent With Patient Time: Total time spent is greater than 50% in coordination of care (as documented) at patient's floor/unit and/or counseling patient:
[2021-02-01] MEDS ORDERED: DIAZEPAM 2 MG TABLET PO SCH (23:45)
[2021-02-01] MEDS ORDERED: ONDANSETRON 4 MG/2 ML VIAL IV PRN (23:52)
--- NOTE | 2021-02-02 02:15 | Emergency Department Note ---
Fall HPI General Chief Complaint: Fall Stated Complaint: fall from standing position Time Seen by Provider: 02/01/21 19:36 Mode of arrival: ambulatory Limitations: other (Limitations due to confusion.) History of Present Illness HPI Narrative: Narrative: 75-year-old male presents to the emergency department because of falling. Patient family decayed the patient been following for about 2 weeks as many as 10-12 times in that 2-week period. Patient states he has fallen twice or even 3 times in 1 day. States he has difficulty getting up afterwards. States he needs to use a walker sometimes. States prior to the recent episodes patient was only falling about once every 2 to 3 months. 1 week ago had to call 911 after a fall. Had some neck pain at that time and was x-rayed here in the emergency department. He was DC'd home afterwards. [facility] has been coming out to the house to help him. He does complain of left-sided head pain and states that he has fallen and hit his head. Patient is a poor historian. Patient also states that he has shaking episodes intermittently and unpredictably. Patient does have a seizure disorder. He states that shaking began about 1 month ago. States he will often see the heart rate increasing when he shaking. Related Data Home Medications Medication Instructions Recorded Confirmed misoprostol 200 mcg tablet 200 mcg PO BID tab 01/08/19 01/19/21 aspirin 81 mg tablet,delayed 81 mg PO QDAY 01/03/20 10/22/20 release cholecalciferol (vitamin D3) 50 50 mcg PO QDAY 01/03/20 10/22/20 mcg (2,000 unit) capsule cyanocobalamin (vitamin B-12) 1,000 mcg PO QDAY 01/03/20 10/22/20 1,000 mcg capsule divalproex 250 mg tablet,delayed 250 mg PO Q12H tab 01/08/21 01/19/21 release Previous Rx's Medication Instructions Recorded triamcinolone acetonide 0.5 % 1 applic TOPICAL BID #15 g 01/03/20 topical ointment losartan 25 mg tablet 25 mg PO QDAY #90 tab 02/04/20 Four-wheeled walker with seat #1 ea 06/11/20 lamotrigine 200 mg tablet 200 mg PO BID #180 tab 06/17/20 lamotrigine 25 mg tablet 50 mg PO BID 90 Days #360 tab 06/17/20 escitalopram oxalate 10 mg tablet 10 mg PO QDAY #90 tab 10/22/20 atorvastatin 20 mg tablet 20 mg PO QDAY #90 tab 11/03/20 furosemide 20 mg tablet 20 mg PO QDAY #90 tab 12/08/20 lidocaine 5 % topical patch 1 patch TOPICAL QDAY #15 ea 01/08/21 potassium chloride 10 mEq 10 meq PO QDAY #90 tab 01/12/21 tablet,extended release Allergies Allergy/AdvReac Type Severity Reaction Status Date / Time No Known Drug Allergies Allergy Verified 01/19/21 18:05 Review of Systems ROS ROS Narrative: Narrative: Limitations: ROS unobtainable due to patients medical condition PFSH Narrative Patient History Narrative: Narrative: Medical/Surgical/Family History All Active Problems (Updated 02/02/21 @ 02:28 by Mark Archibald MD) Unstable balance (Acute) Absence seizure (Acute) Bradycardia with 41-50 beats per minute (Acute) Weakness (Acute) Bronchitis (Acute) Falls frequently (Acute) Medicare annual wellness visit, initial (Acute) Lower extremity weakness (Acute) Depression (Acute) At high risk for falls (Acute) Right knee DJD (Acute) Annual physical exam (Acute) DMII (diabetes mellitus, type 2) (Acute) Medicare annual wellness visit, initial (Acute) Speech abnormality (Acute) Seizure (Acute) Edema, peripheral (Acute) Elevated temperature (Acute) Epileptic seizure (Acute) Weakness of right side of body (Chronic) Degenerative disc disease, lumbar (Chronic) Chronic low back pain (Chronic) CVA (cerebral vascular accident) (Chronic) Osteoarthritis (Chronic) Bone neoplasm (Acute) Obesity, morbid (Chronic) Pain, joint, multiple sites (Chronic 09/04/14) Edema (Chronic 06/14/14) 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) Pernicious anemia (Chronic 07/15/14) Medical History Annual physical exam At high risk for falls Bone neoplasm Chronic low back pain CVA (cerebral vascular accident) 2016, February; and 2018 Degenerative disc disease, lumbar Degenerative joint disease (DJD) of hip bilateral hip Depression DMII (diabetes mellitus, type 2) Edema (06/14/14) Gastrointestinal bleeding Gout Lower extremity weakness Medicare annual wellness visit, initial Medicare annual wellness visit, initial Obesity, morbid Osteoarthritis Pain, joint, multiple sites (09/04/14) Peptic ulcer disease Pernicious anemia (07/15/14) Right knee DJD Weakness of right side of body Due to previous CVA Surgical History History of arthroscopy of right knee History of gastric bypass History of repair of left rotator cuff S/P skin biopsy (06/11/14) skin lesion-right upper forehead 2.1cm Family History Father , 76 Chronic obstructive pulmonary disease Mother Essential hypertension Unknown Atherosclerosis of coronary artery Osteoarthrosis and allied disorders Malignant neoplasm Social History Smoking Status: Former smoker Alcohol Intake Frequency: does not drink Substance Use: does not use Exam Narrative Narrative: Narrative: General Limitations: other (Limitations due to confusion.) General appearance: Present alert (Though he drifts off.) and in no apparent distress Chest Chest: Present symmetric chest wall rise Respiratory Respiratory: Absent respiratory distress Cardiovascular Cardiovascular: Present regular rate (With episodes of tachycardia.) Adbominal Abdominal: Present soft; Absent tenderness Extremities Extremities: Present normal inspection Back Back: Present normal inspection Neurological Neurological: Present alert Psychiatric Psychiatric: Present normal mood Skin Skin: Present warm (WNL) and dry Course Vital Signs Vital signs: Vital Signs Temperature 98.0 F 02/01/21 19:23 Pulse Rate 116 H 02/01/21 19:23 Respiratory Rate 20 02/01/21 19:23 Blood Pressure 116/73 02/01/21 19:23 Pulse Oximetry (%) 95 02/01/21 19:23 Temperature 97.6 F 02/01/21 23:07 Pulse Rate 53 L 02/01/21 23:07 Respiratory Rate 28 H 02/01/21 23:07 Blood Pressure 138/79 02/01/21 23:07 Pulse Oximetry (%) 97 02/01/21 23:07 [facility] MDM Narrative Medical decision making narrative: Narrative: Elderly male with increasing frequency of falls in the past 2 weeks and a 4-week history of shaking that has been increasing in nature. Patient with a pre- existing seizure disorder. Differential diagnosis includes intracranial pathology causing falls, subdural hematoma for example. Electrolyte abnormality, seizure disorder, urinary tract infection, other CT of the head was negative for acute pathology. There was old pathology present. Electrolytes were unremarkable. Creatinine was mildly elevated at 1.4. Glucose was normal. White count was normal, hemoglobin was mildly low at 12.9. Because of the abnormality of the EKGs with shaking and rhythm strips, I had them reviewed by Dr. Sae Cobb the account strategist at [facility]. He reviewed them and advised me that he felt they were all artifact. Case was discussed with the hospitalist Dr. West who came down evaluated the patient and admitted him to the hospital for further care. Lab Data Result diagrams: 02/01/21 19:53 02/01/21 19:53 Labs: Lab Results 02/01/21 02/01/21 02/01/21 Range/Units 19:53 19:53 19:53 WBC 10.7 (4.5-11.0) K/mcL RBC 4.40 L (4.63-6.08) M/mcL Hgb 12.9 L (13.7-17.5) g/dL Hct 40.4 (40.1-51.0) % MCV 91.8 (80.0-100.0) fL MCH 29.3 (26.0-34.0) pg MCHC 31.9 (31.0-36.0) g/dL RDW 14.0 (11.5-14.5) % Plt Count 273 (140-440) K/mcL MPV 9.9 (7.4-10.4) fL Neut % (Auto) 74.3 (38.0-78.0) % Lymph % (Auto) 17.1 (15.5-49.0) % [place] % (Auto) 6.1 (1.0-12.0) % Eos % (Auto) 2.0 (0.0-7.0) % Baso % (Auto) 0.5 (0.0-2.0) % Lymph # (Auto) 1.83 (1.50-4.80) K/mcL [place] # (Auto) 0.65 (0.10-0.90) K/mcL Eos # (Auto) 0.21 (0.00-0.70) K/mcL Baso # (Auto) 0.05 (0.00-0.30) K/mcL Absolute Neutrophils 7.96 (1.80-8.00) K/mcL Sodium 140 (133-145) mmol/L Potassium 3.4 (3.3-5.1) mmol/L Chloride 101 (96-108) mmol/L Carbon Dioxide 28 (22-30) mmol/L Anion Gap 11.0 (8.0-16.0) BUN 17 (8-23) mg/dL Creatinine 1.4 H (0.7-1.2) mg/dL GFR Calculation 48 Glucose 75 (70-105) mg/dL Calcium 8.9 (8.6-10.4) mg/dL Magnesium (1.6-2.5) mg/dL Total Bilirubin 0.6 (0.1-1.0) mg/dL AST 18 (<40) U/L ALT 12 (<40) U/L Alkaline Phosphatase 189 H (39-117) U/L Troponin T 0.02 (<0.03) ng/mL Total Protein 6.8 (5.9-8.4) gm/dL Albumin 3.7 (3.2-5.2) gm/dL Globulin 3.1 (2.2-3.7) gm/dL Albumin/Globulin Ratio 1.2 (1.0-2.3) TSH (0.27-5.01) uIU/mL Urine Color Urine Appearance (Clear) Urine pH (5.0-9.0) Ur Specific [place] (1.000-1.035) Urine Protein (Negative) mg/dL Urine Glucose (UA) (Negative) mg/dL Urine Ketones (Negative) mg/dL Urine Occult Blood (Negative) mg/dL Urine Nitrate (Negative) Urine Bilirubin (Negative) mg/dL Urine Urobilinogen mg/dL Ur Leukocyte Esterase (Negative) /uL Urine RBC (0-3) /hpf Urine WBC (0-4) /hpf Ur Squamous Epith Cells (0-4) /hpf Urine Bacteria (0) /hpf Ur Culture Indicated? 02/01/21 02/01/21 Range/Units 19:53 20:21 WBC (4.5-11.0) K/mcL RBC (4.63-6.08) M/mcL Hgb (13.7-17.5) g/dL Hct (40.1-51.0) % MCV (80.0-100.0) fL MCH (26.0-34.0) pg MCHC (31.0-36.0) g/dL RDW (11.5-14.5) % Plt Count (140-440) K/mcL MPV (7.4-10.4) fL Neut % (Auto) (38.0-78.0) % Lymph % (Auto) (15.5-49.0) % [place] % (Auto) (1.0-12.0) % Eos % (Auto) (0.0-7.0) % Baso % (Auto) (0.0-2.0) % Lymph # (Auto) (1.50-4.80) K/mcL [place] # (Auto) (0.10-0.90) K/mcL Eos # (Auto) (0.00-0.70) K/mcL Baso # (Auto) (0.00-0.30) K/mcL Absolute Neutrophils (1.80-8.00) K/mcL Sodium (133-145) mmol/L Potassium (3.3-5.1) mmol/L Chloride (96-108) mmol/L Carbon Dioxide (22-30) mmol/L Anion Gap (8.0-16.0) BUN (8-23) mg/dL Creatinine (0.7-1.2) mg/dL GFR Calculation Glucose (70-105) mg/dL Calcium (8.6-10.4) mg/dL Magnesium 2.1 (1.6-2.5) mg/dL Total Bilirubin (0.1-1.0) mg/dL AST (<40) U/L ALT (<40) U/L Alkaline Phosphatase (39-117) U/L Troponin T (<0.03) ng/mL Total Protein (5.9-8.4) gm/dL Albumin (3.2-5.2) gm/dL Globulin (2.2-3.7) gm/dL Albumin/Globulin Ratio (1.0-2.3) TSH 2.01 (0.27-5.01) uIU/mL Urine Color Yellow Urine Appearance Hazy A (Clear) Urine pH 5.0 (5.0-9.0) Ur Specific [place] 1.023 (1.000-1.035) Urine Protein 30 A (Negative) mg/dL Urine Glucose (UA) Negative (Negative) mg/dL Urine Ketones 5 A (Negative) mg/dL Urine Occult Blood >=1.0 A (Negative) mg/dL Urine Nitrate Negative (Negative) Urine Bilirubin Negative (Negative) mg/dL Urine Urobilinogen 4.0 A mg/dL Ur Leukocyte Esterase Negative (Negative) /uL Urine RBC < 1 (0-3) /hpf Urine WBC 0 (0-4) /hpf Ur Squamous Epith Cells 0 (0-4) /hpf Urine Bacteria None (0) /hpf Ur Culture Indicated? No Discharge Plan Patient/Caregiver Discharge Instructions Pt seen by SAP SOLUTION MANAGER CONSULTANT/PA only: No Clinical Impression: Unstable balance, Absence seizure Activity: as instructed Patient Disposition: Xfer As Outpt/Obs ([facility] Discharge Date/Time: 02/01/21 23:05
--- NOTE | 2021-02-02 06:05 | Cat Scan Report ---
INDICATION: trauma - falls COMPARISON: Previous brain CT scans dated 01/19/2021, 08/02/2019, 03/05/2019. TECHNIQUE: Axial noncontrast-enhanced images through the brain. Sagittally and coronally reformatted images. FINDINGS: Examination was initially interpreted by [facility] Cerebral hemispheres:No acute intra-axial hemorrhage. There is left parietal, occipital, posterior temporal encephalomalacia as well as old infarction. This is unchanged. No new intra-axial attenuation abnormalities. No localized mass effect. There is periventricular low-attenuation consistent with small vessel ischemic change. Brain volume is within normal limits for age. Brainstem and cerebellum:No intra-axial abnormality Extra-axial:No acute hemorrhage. No subdural or epidural hematoma. No subarachnoid hemorrhage. Basilar cisterns are normal Calvarial:No calvarial fracture. No lytic lesion Temporal bones are negative. No destructive lesions Soft tissue, orbits, sinuses:Orbits and visualized facial soft tissues and paranasal sinuses are negative IMPRESSION: 1. No acute posttraumatic abnormality 2. Left cerebral encephalomalacia 3. No interval change since 01/19/2021 The exam was performed using radiation dose optimization techniques including, but not limited to, automated exposure control, adjustment of the mA and/or kV according to patient size and use of iterative reconstruction technique. Interpreted and Authenticated by: Dennis Schmitt 02/02/21
[2021-02-02] MEDS: 0.9 % SODIUM CHLORIDE 10 ML SYRINGE IV SCH ×3 (08:29→20:11)
[2021-02-02] MEDS: DOCUSATE SODIUM 100 MG CAPSULE PO SCH ×2 (08:31→20:09)
--- NOTE | 2021-02-02 15:31 | Internal Med Progress Note ---
SUBJECTIVE Subjective Patient information: Note initiated : 02/02/21 at 3:23 pm Service Date, if different from initiated Date: [] Patient: Ilir Mejía 75 y/o M admitted on 02/01/21 for fall from standing position. Chief Complaint: [fall weakness and shakes] Principal diagnosis: seizures Interval history: 75 yo WM with recurring falls. Mild bruising injuries. no fractures recently. Pt brought in yesterday after falls at home. Noted to have spells of tremors increase with anxiety. This morning has been alert and appropriate as opposed to limited answers yesterday. Pt noted by staff and therapy unsteady on feet. risk for fall. Dr. Sommer the PCP stopped by to give more history and also informs me pt has neurologist Dr. Lima Said Valier ID Pertinent ROS: Neuro pt says can control his tremor if tightens down muscles. Doesnt think this represent his past seizures. CV no chest pain Hearing says hard of hearing. hearing aids in place says that helps a lot. Additional PMFSH (Level 3 Only): CVA 3 years ago with encephalomalcia and seizures Constitutional Vitals: Vital Signs Temp Pulse Resp BP Pulse Ox 97.7 F 53 L 20 111/64 97 02/02/21 12:00 02/02/21 12:00 02/02/21 12:00 02/02/21 12:00 02/02/21 12:00 Period Temp Pulse Resp BP Sys/[place] Pulse Ox Last 24 Hr 97.6 F-98.0 F 46-253 11- 108-140/62-80 95-100 Intake and Output 02/02/21 02/02/21 02/02/21 05:59 13:59 21:59 Intake Total 150 240 Output Total 0 300 Balance 150 -60 Weight 75.115 kg Intake & Output: Intake & Output 02/02/21 02/02/21 02/02/21 05:59 13:59 21:59 Intake Total 150 240 Output Total 0 300 Balance 150 -60 Weight 75.115 kg Intake: Oral 150 240 Output: Void Amount 0 300 # of times incontinent of urine 0 Other: Meal Lunch Percent of Meal Consumed 75% Feeding Ability Independent Urine Appearance Clear Urine Color Dark Dorys Additional findings Additional findings: GEN WDWN WM laying in bed sleeping and peaceful. no jerking Neuro awakened pt is bright and alert to person place, thought was 02/03/2021 but is the 2nd. knew city and [facility] but [place] the [place] with moving arms he gets a intention tremor and this worsens as he focuses on it. He is able to slow it some but inbetween slowing is actually amplified. distracted seems to resolve again. CV Regular portillo sinus rhythm Lungs CTA Abd soft NTND Calves no edema mentation alert pleasant. OBJ DATA Labs CBC & Chem 7: 02/01/21 19:53 02/01/21 19:53 Labs: Abnormal Lab Results 02/01/21 02/01/21 02/01/21 20:21 19:53 19:53 RBC 4.40 L Hgb 12.9 L Creatinine 1.4 H Alkaline Phosphatase 189 H Urine Appearance Hazy A Urine Protein 30 A Urine Ketones 5 A Urine Occult Blood >=1.0 A Urine Urobilinogen 4.0 A Meds: Medications Diazepam (Diazepam 2 Mg Tablet) 2 mg PO BIDP JESUS Docusate Sodium (Docusate Sodium 100 Mg Capsule) 100 mg PO BID [facility] Last Admin: 02/02/21 08:31 Dose: 100 mg Documented by: Ondansetron HCl (Ondansetron 4 Mg/2 Ml Vial) 4 mg IV Q6HP PRN PRN Reason: Nausea And Vomiting Senna (Sennosides 1 Tablet) 2 tab PO HS [facility] Sodium Chloride (0.9 % Sodium Chloride 10 Ml Syringe) 10 ml IV Q8 [facility] Last Admin: 02/02/21 13:46 Dose: 10 ml Documented by: A/P Assessment and plan (1) Bradycardia with 41-50 beats per minute: Status: Acute Comment: will monitor on telemetry. continue during activity. If any bradycardia and fa lls will need echo and stress testing (2) Falls frequently: Status: Acute Comment: unclear if this is seizures or bradycardia related. continue PT and OT (3) Intention tremor: Status: Acute Comment: worsened with active movement. stops with sleep and relaxation. (4) Absence seizure: Status: Acute Comment: cant exclude atypical or focal seizures. improved on valium but this may represent a movement disorder. Time Spent With Patient Time: Total time spent is greater than 50% in coordination of care (as documented) at patient's floor/unit and/or counseling patient: 35 change to inpatient for further therapy and gait training and workup of seizure vs movement disorder unable to discharge safely. QUALITY VTE Deep Vein Thrombosis/Pulmonary Embolism Present on Admission: No
[2021-02-02] MEDS: DIVALPROEX SODIUM 250 MG TABLET PO SCH (16:43)
[2021-02-02] MEDS: MISOPROSTOL 100 MCG TABLET PO SCH (20:10)
[2021-02-02] MEDS: DIAZEPAM 2 MG TABLET PO SCH (20:10)
[2021-02-02] MEDS ORDERED: ATORVASTATIN 20 MG TABLET PO SCH (21:00)
[2021-02-02] MEDS ORDERED: SENNOSIDES 1 TABLET PO SCH (21:00)
[2021-02-03] MEDS: DIVALPROEX SODIUM 250 MG TABLET PO SCH ×2 (00:06→09:33)
[2021-02-03] MEDS: 0.9 % SODIUM CHLORIDE 10 ML SYRINGE IV SCH ×2 (04:49→14:00)
[2021-02-03] MEDS ORDERED: ESCITALOPRAM 10 MG TABLET PO SCH (09:00)
[2021-02-03] MEDS ORDERED: LIDOCAINE PATCH TOPICAL SCH (09:00)
[2021-02-03] MEDS ORDERED: CYANOCOBALAMIN (VITAMIN B-12) 500 MCG TABLET PO SCH (09:00)
[2021-02-03] MEDS ORDERED: LOSARTAN 25 MG TABLET PO SCH (09:00)
[2021-02-03] MEDS ORDERED: VITAMIN D3 1,000 UNIT TABLET PO SCH (09:00)
[2021-02-03] MEDS ORDERED: ASPIRIN 81 MG TAB.CHEW PO SCH (09:00)
[2021-02-03] MEDS: MISOPROSTOL 100 MCG TABLET PO SCH (09:33)
[2021-02-03] MEDS: DOCUSATE SODIUM 100 MG CAPSULE PO SCH (09:33)
[2021-02-03] MEDS: DIAZEPAM 2 MG TABLET PO SCH (09:34)
[2021-02-03] MEDS ORDERED: FLU VACC QS2021-22(6MOS UP)/PF 60 MCG/0.5 ML SYRINGE IM ONE (10:00)
--- NOTE | 2021-02-03 11:45 | Discharge Summary ---
Discharge Provider Provider Patient information: Note initiated : 02/03/21 at 11:44 am Service Date, if different from initiated Date: [] Patient: Ilir Mejía 75 y/o M admitted on 02/02/21 for fall from standing position. Chief Complaint: [tremor] Date of admission: 02/02/21 15:43 Discharge date: 02/03/21 Primary care physician: Chase Sommer MD Admitting clinician: Mir West Consults: 02/01/21 Consult to Physician [CONS] Stat Comment: Consulting Provider: Mir West Reason For Exam: Physician to Consult 02/02/21 16:01 Consult to Physician [CONS] Routine Comment: snf referral Consulting Provider: [facility] Reason For Exam: Physician to Consult Discharging clinician: Mir West Discharge Meds Discharge Medications Home Medications misoprostol 200 mcg tablet 200 mcg PO BID tab 01/08/19 [History Confirmed 02/02/21 Last Taken Unknown] aspirin 81 mg tablet,delayed release 81 mg PO QDAY 01/03/20 [History Confirmed 02/02/21 Last Taken Unknown] cholecalciferol (vitamin D3) 50 mcg (2,000 unit) capsule 50 mcg PO QDAY 01/03/20 [History Confirmed 02/02/21 Last Taken Unknown] cyanocobalamin (vitamin B-12) 1,000 mcg capsule 1,000 mcg PO QDAY 01/03/20 [History Confirmed 02/02/21 Last Taken Unknown] losartan 25 mg tablet 25 mg PO QDAY #90 tab 02/04/20 [Rx Confirmed 02/02/21 Last Taken Unknown] Four-wheeled walker with seat #1 ea 06/11/20 [Rx Confirmed 02/02/21 Last Taken Unknown] escitalopram oxalate 10 mg tablet 10 mg PO QDAY #90 tab 10/22/20 [Rx Confirmed 02/02/21 Last Taken Unknown] furosemide 20 mg tablet 20 mg PO QDAY #90 tab 12/08/20 [Rx Confirmed 02/02/21 Last Taken Unknown] divalproex 250 mg tablet,delayed release 250 mg PO Q12H tab 01/08/21 [History Confirmed 02/02/21 Last Taken Unknown] lidocaine 5 % topical patch 1 patch TOPICAL QDAY #15 ea 01/08/21 [Rx Confirmed 02/02/21 Last Taken Unknown] potassium chloride 10 mEq tablet,extended release 10 meq PO QDAY #90 tab 01/12/21 [Rx Confirmed 02/02/21 Last Taken Unknown] atorvastatin [Lipitor] 20 mg PO QHS 02/02/21 [History Confirmed 02/02/21 Last Taken Unknown] cephalexin 500 mg PO TID #20 cap NS 02/03/21 [Rx Last Taken Unknown] diazepam 2 mg PO BID #30 tab 02/03/21 [Rx Last Taken Unknown] docusate sodium 100 mg PO BID #60 cap 02/03/21 [Rx Last Taken Unknown] COURSE Hospital Course Hospital course: 75 yo WM comes in with recent tremor and falls. Says hasnt been walking well for about a week. Today he is accompanied by his daughter Perla. She says the pt had mild tremors from up to 6 months but in last 1 months since covid vaccination was markedly worse. She is not clear how long pt has been on lamotrigine. Pt was found to have encephalomalacia on CT head. also has been on lamictal which can cause tremor. I wonder if Covid vaccine inflammation change lamotrigine level or affected the damaged brain as to unmask more tremor. I stopped lamotrigine 250 mg bid 2 days ago and started diazepam 2mg bid yesterday. Pt says tremor is better. Says want to demonstrate getting up. We discussed plan in room and I also discussed with Dr. Sommer earlier. Hold Lamotrigine for 5 more days. Use diazepam for short term seizure suppression. If tremor resolves either lower lamotrigine on restart or choose another option. The patient has scalp folliculitis new in last 3 weeks minimal itchy. Discharge diagnosis: tremor, movement disorder Secondary discharge diagnosis: seizures Post left parietal occipital CVA bradycardia folliculitis scalp Reason for admission: tremors and falls Pertinent studies/significant findings: CT head encephalomalacia Time Spent with Patient Time attestation: Total time spent providing and/or coordinating discharge services: Time spent: Greater than 30 minutes Specific discharge activities: therapy at [facility] hold lamictal till further evaluation start diazepam 2 mg bid EXAM Constitutional Vitals: Temp Pulse Resp BP Pulse Ox 97.8 F 53 L 20 127/79 96 02/03/21 08:00 02/03/21 08:00 02/03/21 08:00 02/03/21 08:00 02/03/21 08:00 Additional findings Additional findings: GEN WDWN WM in NAD. Hearing aids in and converses normally face no longer flat affect. Alert and oriented. CV RRR Lungs CTA Calves no edema neuro no tremor at rest. with intention has mild tremor worse the more he focuses on stopping it. Motor VIPIN. heel to pineda mildly uncoordinated. able to stand with one person assist. Discharge Data Data Completed and Pending Labs on day of discharge: Labs from last 24 hours 02/02/21 02/02/21 15:53 15:52 Cortisol PM Sample 12.5 H Lamotrigine Pending Discharge Plan Patient/Caregiver Discharge Instructions Activity: ambulate only with your walker and as instructed Diet: Cardiac Instructions: Diazepam (By mouth), Laxative, Stool Softeners (By mouth), Tremors (GEN), Left Hemispheric Stroke (GEN) Activity Restrictions/Additional Instructions: May resume cardiac diet. May resume medications as directed. Continue with fall precautions. Antibacterial soap or Hibiclens scrub to scalp BID x 7 days. Take all meals up in chair, sitting at 90 degrees, to prevent aspiration. Up with assistance and ambulate with walker only per physical therapy's recommendations. Pain medication can cause constipation. Take an over the counter stool softener/laxative while on pain medication. Return to ER for fever, chills, uncontrolled pain, inability to urinate or have a bowel movement, nausea and/or vomiting, swelling, redness, signs of infection, shortness of breath, chest pain, return of symptoms, or other acute symptom. This discharge packet is provided to you to help keep you informed about your care. We want to ensure you get everything you need when you go home. You will also be receiving a call from us in a few days to follow up with you and see how you are doing since your discharge. This gives us a chance to listen to any concerns you maybe experiencing since you were discharged or any additional needs you may have, as well as providing us feedback on your care experience. We strive to always provide excellent care and thank you for your feedback and for choosing [facility]. Prescriptions: New docusate sodium 100 mg Capsule 100 mg PO BID Qty: 60 RF: 0 diazepam 2 mg Tablet 2 mg PO BID Qty: 30 RF: 0 cephalexin 500 mg capsule 500 mg PO TID Qty: 20 RF: 0 Continued losartan [Cozaar] 25 mg tablet 25 mg PO QDAY Qty: 90 RF: 1 (DME) Four-wheeled walker with seat See Rx Instructions .Route .MEDSUPPLY Qty: 1 RF: 0 furosemide [Lasix] 20 mg tablet 20 mg PO QDAY Qty: 90 RF: 1 potassium chloride [Klor-Con 10] 10 mEq tablet extended release 10 meq PO QDAY Qty: 90 RF: 1 misoprostol 200 mcg tablet 200 mcg PO BID RF: 0 cyanocobalamin (vitamin B-12) 1,000 mcg capsule 1,000 mcg PO QDAY RF: 0 cholecalciferol (vitamin D3) 50 mcg (2,000 unit) capsule 50 mcg PO QDAY RF: 0 aspirin [Adult Low Dose Aspirin] 81 mg tablet,delayed release (DR/EC) 81 mg PO QDAY RF: 0 escitalopram oxalate [Lexapro] 10 mg tablet 10 mg PO QDAY Qty: 90 RF: 1 divalproex 250 mg tablet,delayed release (DR/EC) 250 mg PO Q12H RF: 0 lidocaine 5 % adhesive patch,medicated 1 patch topical QDAY Qty: 15 RF: 0 atorvastatin [Lipitor] 20 mg tablet 20 mg PO QHS RF: 0 Discontinued lamotrigine [Lamictal] 200 mg tablet 200 mg PO BID Qty: 180 RF: 0 lamotrigine [Lamictal] 25 mg tablet 50 mg PO BID 90 Days Qty: 360 RF: 0 Other Ambulatory Orders: OT Discharge Order (Routine) Location: None Selected Ordered By: Mir West Physical Therapy at Discharge - General (Routine) Location: None Selected Ordered By: Mir West Follow Up Plan Follow up with: Chase Sommer MD [Primary Care Provider] - (Please call office to schedule follow-up appointment within 7-10 days.) Patient Disposition: Xfer SNF Rehab Potential: Fair I certify that the patient requires SNF services: Yes Overall status at discharge: patient is progressing back to baseline Discharge Orders: Discharge Order (Routine); Ordered 02/03/21 Ordered By: Mir West QUALITY VTE Deep Vein Thrombosis/Pulmonary Embolism Present on Admission: No
--- NOTE | 2021-02-05 07:13 | EKG ---
[facility] Test Date: 2021-02-01 Pat Name: Ilir Mejía Department: ED Room: Gender: Male Supervisor Facepiece Line: SB : 1945 Requested By: Mark Archibald Order Number: [id number] Reading MD: Ruy Jin Measurements Intervals Muse Rate: 56 P: [place]: QRS: 18 QRSD: 94 T: 15 QT: 440 QTc: 425 Interpretive Statements ATRIAL FIBRILLATION, V-RATE 56- 57 LOW VOLTAGE IN FRONTAL LEADS Afib is new compared to prior Electronically Signed On 02-05-2021 7:13:12 PDT by Ruy Jin /store/M0/[id number].pdf
== END 2021-02-03 14:40 | DRG 93 ==
LOC: MEDSUR 19:22 → ED 19:22 → OBSVTOIN 22:53 → INTOOBSV 22:53 → MEDSUR 23:05
PROVIDERS: ADMIT Internal Medicine; ATTEND Internal Medicine

== ENCOUNTER 2022-05-04 07:46 | Inpatient (IN) ==
[2022-05-04] MEDS ORDERED: 0.9 % SODIUM CHLORIDE 1,000 ML IV ONE ×2 (07:57→09:58)
[2022-05-04 08:10] LABS: POC Calcium, Ionized 1.07 (1.16-1.32); POC Creatinine 1.1 (0.6-1.2)
--- NOTE | 2022-05-04 08:15 | Emergency Department Note ---
Seizure HPI General Chief Complaint: Seizure Stated Complaint: seizure Time Seen by Provider: 05/04/22 07:53 Source: EMS Mode of arrival: EMS Limitations: altered mental status History of Present Illness HPI Narrative: Narrative: Patient arrives via EMS due to seizures. Patient is obtunded with altered mental status unable to answer any questions. EMS states they received a call that patient was seizing. Does have a history of seizures. EMS states when they arrived he was actively seizing. He was given 5 mg of IM Versed. Patient continued to seize and he was given other round of 5 mg IM of Versed which point patient's seizure stopped. He states he was protecting his airway and breathing comfortably on room air. They state that he did feel little bit warm. Patient's daughter arrived at bedside she states that patient did not take his medications last night which would include his antiseizure medication. She states he has felt warm over the last couple days. Denies any nausea, vomiting, diarrhea, complains of abdominal pain, dysuria, hematuria, urinary frequency, complaints of cardiac chest pain, shortness of breath, head trauma. Denies any other alleviating or aggravating factors. Related Data Home Medications Medication Instructions Recorded Confirmed misoprostol 200 mcg tablet 200 mcg PO BID 01/08/19 05/04/22 aspirin 81 mg tablet,delayed 81 mg PO QDAY 01/03/20 05/04/22 release (Adult Low Dose Aspirin) cholecalciferol (vitamin D3) 50 50 mcg PO QDAY 01/03/20 05/04/22 mcg (2,000 unit) capsule cyanocobalamin (vitamin B-12) 1,000 mcg PO QDAY 01/03/20 05/04/22 1,000 mcg capsule divalproex 250 mg tablet,delayed 250 mg PO Q12H 01/08/21 05/04/22 release gabapentin 100 mg capsule 300 mg PO HS 03/29/22 05/04/22 gabapentin 100 mg capsule 300 mg PO HS 05/04/22 05/04/22 Previous Rx's Medication Instructions Recorded Four-wheeled walker with seat #1 ea 06/11/20 lidocaine 5 % topical patch 1 patch topical QDAY #15 ea 01/08/21 levetiracetam 500 mg tablet 500 mg PO BID #180 tabs 05/14/21 (Keppra) losartan 25 mg tablet (Cozaar) 25 mg PO QDAY #90 tabs 07/30/21 atorvastatin 20 mg tablet (Lipitor) 20 mg PO QHS #90 tabs 11/23/21 betamethasone dipropionate 0.05 % 1 applic topical BID 2 weeks #45 11/26/21 topical cream grams escitalopram oxalate 20 mg tablet 20 mg PO QDAY #90 tabs 12/22/21 omeprazole 20 mg capsule,delayed 20 mg PO BID #180 caps 12/31/21 release furosemide 20 mg tablet (Lasix) 20 mg PO QDAY #90 tabs 03/03/22 potassium chloride 10 mEq 10 meq PO QDAY #90 tabs 03/03/22 tablet,extended release (Klor-Con) aripiprazole 2 mg tablet (Abilify) 2 mg PO QHS #30 tabs 03/25/22 diazepam 2 mg tablet (Valium) 1 mg PO BID #30 tabs 04/29/22 Allergies Allergy/AdvReac Type Severity Reaction Status Date / Time No Known Drug Allergies Allergy Verified 04/05/22 14:50 Review of Systems ROS ROS Narrative: Narrative: All systems ED: reviewed and negative except as stated. [facility] Narrative Patient History Narrative: Narrative: Medical/Surgical/Family History All Active Problems (Updated 05/04/22 @ 14:28 by Remington Nash MD) Essential hypertension (Acute) Dementia (Acute) Acute viral syndrome (Acute) Seizure disorder (Acute) Post-ictal state (Acute) Altered mental status (Acute) BPH associated with nocturia (Acute) Annual physical exam (Acute) Depression (Acute) Aspiration pneumonia (Acute) Status epilepticus (Acute) Acidosis, lactic (Acute) Fever (Acute) Hypotension (Acute) Bronchopneumonia (Acute) Otitis externa (Acute) DJD of both shoulders (Acute) BPH associated with nocturia (Acute) Hospital discharge follow-up (Acute) Intention tremor (Acute) Unstable balance (Acute) Absence seizure (Acute) Bradycardia with 41-50 beats per minute (Acute) Weakness (Acute) Bronchitis (Acute) Falls frequently (Acute) Medicare annual wellness visit, initial (Acute) Lower extremity weakness (Acute) Depression (Acute) At high risk for falls (Acute) Right knee DJD (Acute) Annual physical exam (Acute) DMII (diabetes mellitus, type 2) (Acute) Medicare annual wellness visit, initial (Acute) Speech abnormality (Acute) Seizure (Acute) Edema, peripheral (Acute) Elevated temperature (Acute) Epileptic seizure (Acute) Weakness of right side of body (Chronic) Degenerative disc disease, lumbar (Chronic) Chronic low back pain (Chronic) CVA (cerebral vascular accident) (Chronic) Osteoarthritis (Chronic) Bone neoplasm (Acute) Obesity, morbid (Chronic) Pain, joint, multiple sites (Chronic 09/04/14) Edema (Chronic 06/14/14) 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 Degenerative disc disease, lumbar Degenerative joint disease (DJD) of hip bilateral hip Depression DJD of both shoulders DMII (diabetes mellitus, type 2) Edema (06/14/14) Gastrointestinal bleeding Gout Hospital discharge follow-up Lower extremity weakness Medicare annual wellness visit, initial Medicare annual wellness visit, initial Obesity, morbid Osteoarthritis Otitis externa Pain, joint, multiple sites (09/04/14) Peptic ulcer disease Pernicious anemia (07/15/14) Right knee DJD Weakness of right side of body Due to previous CVA Surgical History History of arthroscopy of right knee History of gastric bypass History of repair of left rotator cuff S/P skin biopsy (06/11/14) skin lesion-right upper forehead 2.1cm Family History Father , 76 Chronic obstructive pulmonary disease Mother Essential hypertension Unknown Atherosclerosis of coronary artery Osteoarthrosis and allied disorders Malignant neoplasm Social History Smoking Status: Former smoker Alcohol Intake Frequency: holiday/special occasion only Substance Use: does not use Exam Narrative Narrative: Narrative: General Limitations: altered mental status General appearance: Present obtunded Head Head: Present atraumatic and normocephalic Eye Eye: Present normal appearance and PERRL ENT ENT: Present normal oropharynx and mucous membranes moist Respiratory Respiratory: Present normal lung sounds bilaterally; Absent respiratory distress Cardiovascular Cardiovascular: Present regular rate and normal rhythm Adbominal Abdominal: Present soft and normal bowel sounds Extremities Extremities: Present normal capillary refill Neurological Neurological: Present other (Unable to assess due to altered mental status) Psychiatric Psychiatric: Present other (Unable to assess due to altered mental status) Skin Skin: Present warm (WNL) and intact Course Course Course Narrative: Patient was evaluated for seizure activity. When patient arrived in the ED he was no longer actively seizing. CT of the head was obtained with image reviewed myself with no acute intracranial findings. Patient was given 1000 mg of IV Keppra. His lactic acid was elevated greater than 2 so he was bolused a liter of IV fluids here in the ED. UA was unremarkable. Patient was negative for COVID and flu. Upon initial evaluation patient had altered mental status and was obtunded. Throughout his stay he started to wake up a little bit more but still not at baseline per his daughter. Case was discussed with hospitalist who has agreed to admit the patient to the hospital for postictal secondary to seizure activity. Reevaluation(s) Reevaluation #1: Patient remains hemodynamically stable. No new complaints at this time. Patient is more alert than when he initially arrived in the ED but still post ictal Time: 09:01 Consultations Consultation #1: Case discussed with hospitalist who has agreed to admit the patient. Time: 13:54 Vital Signs Vital signs: Vital Signs Pulse Rate 60 05/04/22 07:57 Respiratory Rate 24 H 05/04/22 07:57 Blood Pressure 112/75 05/04/22 07:57 Pulse Oximetry (%) 95 05/04/22 07:57 Oxygen Delivery Method Room Air 05/04/22 07:57 Temperature 100.5 F H 05/04/22 15:48 Pulse Rate 57 L 05/04/22 16:09 Respiratory Rate 18 05/04/22 16:09 Blood Pressure 152/78 05/04/22 16:09 Pulse Oximetry (%) 98 05/04/22 16:09 Oxygen Delivery Method Room Air 05/04/22 15:21 Oxygen Flow Rate (L/min) 2 05/04/22 09:46 [facility] MDM Narrative Medical decision making narrative: Narrative: Differential Diagnosis Differential Diagnosis: Seizure, CVA Medical Records Medical records reviewed: Yes I reviewed the patient's medical records. Lab Data Lab results reviewed: Yes I reviewed the patient's lab results. 05/04/22 08:22 Labs: Lab Results 05/04/22 05/04/22 05/04/22 Range/Units 08:05 08:22 10:15 WBC 5.2 (4.5-11.0) K/mcL RBC 3.73 L (4.63-6.08) M/mcL Hgb 10.9 L (13.7-17.5) g/dL Hct 34.4 L (40.1-51.0) % POC Hct 32.0 L (41-55) MCV 92.2 (80.0-100.0) fL MCH 29.2 (26.0-34.0) pg MCHC 31.7 (31.0-36.0) g/dL RDW 14.2 (11.5-14.5) % Plt Count 143 (140-440) K/mcL MPV 10.8 (8.8-12.5) fL Immature Gran % (Auto) 0.2 (0.0-0.5) % Neut % (Auto) 75.9 (38.0-78.0) % Lymph % (Auto) 14.7 L (15.5-49.0) % Arroyo % (Auto) 5.9 (1.0-12.0) % Eos % (Auto) 2.7 (0.0-7.0) % Baso % (Auto) 0.6 (0.0-2.0) % Lymph # (Auto) 0.77 L (1.50-4.80) K/mcL [place]roy[place] # (Auto) 0.31 (0.10-0.90) K/mcL Eos # (Auto) 0.14 (0.00-0.70) K/mcL Baso # (Auto) 0.03 (0.00-0.30) K/mcL Immature Gran # 0.01 (0.00-0.05) K/mcl Absolute Neutrophils 3.97 (1.80-8.00) K/mcL ABG Methemoglobin 0.2 L (0.4-1.5) % VBG pH 7.36 (7.32-7.42) U POC VBG pH (7.32-7.42) VBG pCO2 47.5 (41.0-51.0) mmHg POC VBG pCO2 at Temp (41-51) VBG pO2 47.9 H (25.0-40.0) mmHg POC VBG pO2 (25-40) VBG HCO3 26.2 (24.0-28.0) mmol/L POC VBG HCO3 (24-28) VBG Total CO2 27.6 (25.0-29.0) mmol/L POC VBG Total CO2 (25-29) VBG O2 Saturation 78.7 H (40.0-70.0) % POC Venous O2 Sat (40-70) VBG Base Excess 0 (-2-3) POC VBG Base Excess (-2-2) VBG Lactic Acid (0.5-2) Carboxyhemoglobin 4.5 H (0.0-1.5) % THgb Total Hemoglobin 13.7 (13.5-16.5) gm/Dl POC Sodium 143 (133-145) POC Potassium 4.0 (3.3-5.1) POC Chloride 103 (96-108) POC Total CO2 24.0 (22-30) POC BUN 14 (6-20) POC Creatinine 1.1 (0.6-1.2) POC Glucose 90 (70-105) POC WB Ioniz Calcium 1.07 L (1.16-1.32) Prolactin (4.0-15.2) ng/mL Urine Opiates Screen Ur Opiates Confirm Ur Oxycodone Screen Urine Methadone Screen Ur Methadone Confirm Ur Barbiturates Screen Ur Barbiturate Confirm Ur Phencyclidine Scrn Urine PCP Confirm Ur Amphetamines Screen U Amphetamines Confirm U Benzodiazepines Scrn Urine Cocaine Screen Urine Cocaine Confirm U Marijuana (THC) Screen Urine Alcohol mg/dL Ethyl Alcohol mg/dL mg/dL Ethyl Alcohol g/dL (<0.010) gm/dL 05/04/22 05/04/22 05/04/22 Range/Units 12:26 14:12 14:12 WBC (4.5-11.0) K/mcL RBC (4.63-6.08) M/mcL Hgb (13.7-17.5) g/dL Hct (40.1-51.0) % POC Hct (41-55) MCV (80.0-100.0) fL MCH (26.0-34.0) pg MCHC (31.0-36.0) g/dL RDW (11.5-14.5) % Plt Count (140-440) K/mcL MPV (8.8-12.5) fL Immature Gran % (Auto) (0.0-0.5) % Neut % (Auto) (38.0-78.0) % Lymph % (Auto) (15.5-49.0) % Arroyo % (Auto) (1.0-12.0) % Eos % (Auto) (0.0-7.0) % Baso % (Auto) (0.0-2.0) % Lymph # (Auto) (1.50-4.80) K/mcL [place]roy[place] # (Auto) (0.10-0.90) K/mcL Eos # (Auto) (0.00-0.70) K/mcL Baso # (Auto) (0.00-0.30) K/mcL Immature Gran # (0.00-0.05) K/mcl Absolute Neutrophils (1.80-8.00) K/mcL ABG Methemoglobin (0.4-1.5) % VBG pH (7.32-7.42) U POC VBG pH 7.34 (7.32-7.42) VBG pCO2 (41.0-51.0) mmHg POC VBG pCO2 at Temp 49.4 (41-51) VBG pO2 (25.0-40.0) mmHg POC VBG pO2 27 (25-40) VBG HCO3 (24.0-28.0) mmol/L POC VBG HCO3 26.7 (24-28) VBG Total CO2 (25.0-29.0) mmol/L POC VBG Total CO2 28.0 (25-29) VBG O2 Saturation (40.0-70.0) % POC Venous O2 Sat 46.0 (40-70) VBG Base Excess (-2-3) POC VBG Base Excess 1.0 (-2-2) VBG Lactic Acid 3.6 H (0.5-2) Carboxyhemoglobin (0.0-1.5) % THgb Total Hemoglobin (13.5-16.5) gm/Dl POC Sodium (133-145) POC Potassium (3.3-5.1) POC Chloride (96-108) POC Total CO2 (22-30) POC BUN (6-20) POC Creatinine (0.6-1.2) POC Glucose (70-105) POC WB Ioniz Calcium (1.16-1.32) Prolactin 16.2 H (4.0-15.2) ng/mL Urine Opiates Screen None detected Ur Opiates Confirm TNP Ur Oxycodone Screen None detected Urine Methadone Screen None detected Ur Methadone Confirm TNP Ur Barbiturates Screen None detected Ur Barbiturate Confirm TNP Ur Phencyclidine Scrn None detected Urine PCP Confirm TNP Ur Amphetamines Screen None detected U Amphetamines Confirm TNP U Benzodiazepines Scrn Suspect positive A Urine Cocaine Screen None detected Urine Cocaine Confirm TNP U Marijuana (THC) Screen Suspect positive A Urine Alcohol None detected mg/dL Ethyl Alcohol mg/dL mg/dL Ethyl Alcohol g/dL (<0.010) gm/dL 05/04/22 05/04/22 Range/Units 14:12 14:42 WBC (4.5-11.0) K/mcL RBC (4.63-6.08) M/mcL Hgb (13.7-17.5) g/dL Hct (40.1-51.0) % POC Hct (41-55) MCV (80.0-100.0) fL MCH (26.0-34.0) pg MCHC (31.0-36.0) g/dL RDW (11.5-14.5) % Plt Count (140-440) K/mcL MPV (8.8-12.5) fL Immature Gran % (Auto) (0.0-0.5) % Neut % (Auto) (38.0-78.0) % Lymph % (Auto) (15.5-49.0) % Arroyo % (Auto) (1.0-12.0) % Eos % (Auto) (0.0-7.0) % Baso % (Auto) (0.0-2.0) % Lymph # (Auto) (1.50-4.80) K/mcL Arroy[place] # (Auto) (0.10-0.90) K/mcL Eos # (Auto) (0.00-0.70) K/mcL Baso # (Auto) (0.00-0.30) K/mcL Immature Gran # (0.00-0.05) K/mcl Absolute Neutrophils (1.80-8.00) K/mcL ABG Methemoglobin (0.4-1.5) % VBG pH (7.32-7.42) U POC VBG pH (7.32-7.42) VBG pCO2 (41.0-51.0) mmHg POC VBG pCO2 at Temp (41-51) VBG pO2 (25.0-40.0) mmHg POC VBG pO2 (25-40) VBG HCO3 (24.0-28.0) mmol/L POC VBG HCO3 (24-28) VBG Total CO2 (25.0-29.0) mmol/L POC VBG Total CO2 (25-29) VBG O2 Saturation (40.0-70.0) % POC Venous O2 Sat (40-70) VBG Base Excess (-2-3) POC VBG Base Excess (-2-2) VBG Lactic Acid 4.3 H* (0.5-2) Carboxyhemoglobin (0.0-1.5) % THgb Total Hemoglobin (13.5-16.5) gm/Dl POC Sodium (133-145) POC Potassium (3.3-5.1) POC Chloride (96-108) POC Total CO2 (22-30) POC BUN (6-20) POC Creatinine (0.6-1.2) POC Glucose (70-105) POC WB Ioniz Calcium (1.16-1.32) Prolactin (4.0-15.2) ng/mL Urine Opiates Screen Ur Opiates Confirm Ur Oxycodone Screen Urine Methadone Screen Ur Methadone Confirm Ur Barbiturates Screen Ur Barbiturate Confirm Ur Phencyclidine Scrn Urine PCP Confirm Ur Amphetamines Screen U Amphetamines Confirm U Benzodiazepines Scrn Urine Cocaine Screen Urine Cocaine Confirm U Marijuana (THC) Screen Urine Alcohol mg/dL Ethyl Alcohol mg/dL < 10.0 mg/dL Ethyl Alcohol g/dL < 0.010 (<0.010) gm/dL ED POC Tests ED POC Tests: LENY - Influenza A Negative LENY - Influenza B Negative LENY - SARS Antigen Negative Core Measures AMI Core Measures Followed: Yes Discharge Plan Patient/Caregiver Discharge Instructions Pt seen by COUNCILPERSON/PA only: No Clinical Impression: Seizure disorder, Post-ictal state Patient Disposition: Xfer As Outpt/Obs ([facility]) Condition: Fair Discharge Date/Time: 05/04/22 15:28
--- NOTE | 2022-05-04 08:44 | Cat Scan Report ---
INDICATION: seizure COMPARISON: Previous examinations dated 02/01/2021, 01/19/2021, 08/02/2019 TECHNIQUE: Axial noncontrast-enhanced images through the brain. Sagittally and coronally reformatted images. FINDINGS: Cerebral hemispheres:No acute intracranial hemorrhage. Encephalomalacia in the left posterior cerebral artery territory. This involves posterior left parietal lobe, left occipital lobe, and posterior temporal lobe. Appearance is unchanged. No acute intra-axial attenuation abnormalities. No localized mass effect. No midline shift. There is mild white matter abnormality in a periventricular distribution. This is consistent with small vessel ischemic change in this 77-year-old patient. Brainstem and cerebellum:No intra-axial abnormality Extra-axial:No acute hemorrhage. No subdural or epidural hematoma. No subarachnoid hemorrhage. Basilar cisterns are normal Calvarial:No calvarial fracture. No lytic lesion Temporal bones are negative. No destructive lesions Soft tissue, orbits, sinuses:Orbits and visualized facial soft tissues and paranasal sinuses are negative IMPRESSION: 1. Encephalomalacia in the left posterior cerebral artery territory, unchanged 2. White matter abnormality consistent with small vessel ischemic change 3. No acute abnormality. No intracranial hemorrhage The exam was performed using radiation dose optimization techniques including, but not limited to, automated exposure control, adjustment of the mA and/or kV according to patient size and use of iterative reconstruction technique. Interpreted and Authenticated by: Dennis Schmitt 05/04/22
[2022-05-04] MEDS ORDERED: levETIRAcetam 1,000 MG in 0.9 % SODIUM CHLORIDE 100 ML IV SCH (09:00)
[2022-05-04 09:04] LABS: Basophils # (Auto) 0.03 K/mcL (0.00-0.30); Basophils % (Auto) 0.6 % (0.0-2.0); Eosinophils # (Auto) 0.14 K/mcL (0.00-0.70); Eosinophils % (Auto) 2.7 % (0.0-7.0); Hematocrit 34.4 % (40.1-51.0); Hemoglobin 10.9 g/dL (13.7-17.5); Lymphocytes # (Auto) 0.77 K/mcL (1.50-4.80); Lymphocytes % (Auto) 14.7 % (15.5-49.0); Mean Cell Volume 92.2 fL (80.0-100.0); Mean Corpuscular HGB Conc 31.7 g/dL (31.0-36.0); Mean Platelet Volume 10.8 fL (8.8-12.5); Monocytes # (Auto) 0.31 K/mcL (0.10-0.90); Monocytes % (Auto) 5.9 % (1.0-12.0); Neutrophils % (Auto) 75.9 % (38.0-78.0); Platelet Count 143 K/mcL (140-440); RBC 3.73 M/mcL (4.63-6.08); Red Cell Distribution Width 14.2 % (11.5-14.5); WBC 5.2 K/mcL (4.5-11.0)
[2022-05-04 10:33] LABS: ABG Methemoglobin 0.2 % (0.4-1.5); Total Hemoglobin 13.7 gm/Dl (13.5-16.5); VBG Base Excess 0 (-2-3); VBG HCO3 26.2 mmol/L (24.0-28.0); VBG Oxygen Saturation 78.7 % (40.0-70.0); VBG PCO2 47.5 mmHg (41.0-51.0); VBG PH 7.36 U (7.32-7.42); VBG PO2 47.9 mmHg (25.0-40.0); VBG Total CO2 27.6 mmol/L (25.0-29.0)
[2022-05-04] MEDS ORDERED: ONDANSETRON 4 MG/2 ML VIAL IV PRN (14:13)
[2022-05-04] MEDS ORDERED: LACTULOSE 20 GM/30 ML ORAL.SOL PO PRN (14:13)
[2022-05-04] MEDS ORDERED: IPRATROPIUM/ALBUTEROL 3 ML AMPUL.NEB NEB PRN (14:13)
[2022-05-04] MEDS ORDERED: SENNOSIDES 1 TABLET PO PRN (14:13)
[2022-05-04] MEDS ORDERED: hydrALAZINE 20 MG/ML VIAL IV PRN (14:15)
[2022-05-04] MEDS ORDERED: LORazepam 2 MG/ML VIAL IV PRN (14:15)
--- NOTE | 2022-05-04 14:22 | Internal Med History&Physical ---
HPI History of Present Illness Patient information: Note initiated : 05/04/22 at 2:17 pm Service Date, if different from initiated Date: [] Patient: Ilir Mejía 77 y/o M admitted on for seizure. Chief Complaint: [seizure/post-ictal confusion ] Chief complaint: seizure/post-ictal confusion History of present illness: Mr. Mejía is a 77 year old M history of seizures, hypertensions, depressions, questionable dementia, presenting with 1 day history of acute onset seizure activities. It was reported that last similar seizure activities episode was a few months ago. Patient forgot to take 6 antiseizure's medications yesterday evening. He will often forget to take his medications according to family. Earlier today he was weakness by family member to have tonic-clonic seizure activity lasting approximately 2 minutes. EMS called and gave the patient 1 dose of 5 mg IM Ativan, failed to break the seizure activities. A repeat 5 mg IM Ativan dose was given finally broke the seizure activities. Patient sent to ED for further evaluations. Patient still appears to be in postictal coma state. He is unable to carry a conversation with me. He is sleeping and cannot be aroused by either voice or painful stimuli. CT of the head without contrast no acute intracranial abnormalities. Keppra 1000 Mg IV one-time dose given in the ED. Admission request call for postictal confusions associated with recent seizure activity is likely due to medications noncompliant. Review of Systems ROS unobtainable: due to mental status PFSH PFSH All Active Problems (Updated 05/04/22 @ 14:28 by Remington Nash MD) Essential hypertension (Acute) Dementia (Acute) Acute viral syndrome (Acute) Seizure disorder (Acute) Post-ictal state (Acute) Altered mental status (Acute) BPH associated with nocturia (Acute) Annual physical exam (Acute) Depression (Acute) Aspiration pneumonia (Acute) Status epilepticus (Acute) Acidosis, lactic (Acute) Fever (Acute) Hypotension (Acute) Bronchopneumonia (Acute) Otitis externa (Acute) DJD of both shoulders (Acute) BPH associated with nocturia (Acute) Hospital discharge follow-up (Acute) Intention tremor (Acute) Unstable balance (Acute) Absence seizure (Acute) Bradycardia with 41-50 beats per minute (Acute) Weakness (Acute) Bronchitis (Acute) Falls frequently (Acute) Medicare annual wellness visit, initial (Acute) Lower extremity weakness (Acute) Depression (Acute) At high risk for falls (Acute) Right knee DJD (Acute) Annual physical exam (Acute) DMII (diabetes mellitus, type 2) (Acute) Medicare annual wellness visit, initial (Acute) Speech abnormality (Acute) Seizure (Acute) Edema, peripheral (Acute) Elevated temperature (Acute) Epileptic seizure (Acute) Weakness of right side of body (Chronic) Degenerative disc disease, lumbar (Chronic) Chronic low back pain (Chronic) CVA (cerebral vascular accident) (Chronic) Osteoarthritis (Chronic) Bone neoplasm (Acute) Obesity, morbid (Chronic) Pain, joint, multiple sites (Chronic 09/04/14) Edema (Chronic 06/14/14) 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 Degenerative disc disease, lumbar Degenerative joint disease (DJD) of hip bilateral hip Depression DJD of both shoulders DMII (diabetes mellitus, type 2) Edema (06/14/14) Gastrointestinal bleeding Gout Hospital discharge follow-up Lower extremity weakness Medicare annual wellness visit, initial Medicare annual wellness visit, initial Obesity, morbid Osteoarthritis Otitis externa Pain, joint, multiple sites (09/04/14) Peptic ulcer disease Pernicious anemia (07/15/14) Right knee DJD Weakness of right side of body Due to previous CVA Surgical History History of arthroscopy of right knee History of gastric bypass History of repair of left rotator cuff S/P skin biopsy (06/11/14) skin lesion-right upper forehead 2.1cm Family History Father , 76 Chronic obstructive pulmonary disease Mother Essential hypertension Unknown Atherosclerosis of coronary artery Osteoarthrosis and allied disorders Malignant neoplasm Social History marital status: education level: college occupational status: retired other: 4 children 5 grandchildren 1 great grandcild smoking status: Former smoker smoking status stop date: 04/03/99 alcohol intake frequency: holiday/special occasion only substance use type: does not use MEDS/ALLERGIES Home Medications and Allergies Home Medications Medication Instructions Recorded Confirmed Type misoprostol 200 mcg tablet 200 mcg PO BID 01/08/19 04/05/22 History aspirin 81 mg tablet,delayed 81 mg PO QDAY 01/03/20 04/05/22 History release (Adult Low Dose Aspirin) cholecalciferol (vitamin D3) 50 50 mcg PO QDAY 01/03/20 04/05/22 History mcg (2,000 unit) capsule cyanocobalamin (vitamin B-12) 1,000 mcg PO QDAY 01/03/20 04/05/22 History 1,000 mcg capsule Four-wheeled walker with seat #1 ea 06/11/20 04/05/22 Rx divalproex 250 mg tablet,delayed 250 mg PO Q12H 01/08/21 04/05/22 History release lidocaine 5 % topical patch 1 patch topical QDAY #15 ea 01/08/21 04/05/22 Rx docusate sodium 100 mg capsule 100 mg PO BID #60 caps 02/03/21 04/05/22 Rx levetiracetam 500 mg tablet 500 mg PO BID #180 tabs 05/14/21 04/05/22 Rx (Keppra) losartan 25 mg tablet (Cozaar) 25 mg PO QDAY #90 tabs 07/30/21 04/05/22 Rx atorvastatin 20 mg tablet (Lipitor) 20 mg PO QHS #90 tabs 11/23/21 04/05/22 Rx betamethasone dipropionate 0.05 % 1 applic topical BID 2 weeks #45 11/26/21 04/05/22 Rx topical cream grams escitalopram oxalate 20 mg tablet 20 mg PO QDAY #90 tabs 12/22/21 04/05/22 Rx omeprazole 20 mg capsule,delayed 20 mg PO BID #180 caps 12/31/21 04/05/22 Rx release furosemide 20 mg tablet (Lasix) 20 mg PO QDAY #90 tabs 03/03/22 04/05/22 Rx potassium chloride 10 mEq 10 meq PO QDAY #90 tabs 03/03/22 04/05/22 Rx tablet,extended release (Klor-Con) aripiprazole 2 mg tablet (Abilify) 2 mg PO QHS #30 tabs 03/25/22 04/05/22 Rx gabapentin 100 mg capsule 100 mg PO 03/29/22 04/05/22 History diazepam 2 mg tablet (Valium) 1 mg PO BID #30 tabs 04/29/22 Rx Allergies Allergy/AdvReac Type Severity Reaction Status Date / Time No Known Drug Allergies Allergy Verified 04/05/22 14:50 EXAM Constitutional Vitals: Pulse Resp BP Pulse Ox O2 Del Method O2 Flow Rate 64 17 151/63 99 Nasal Cannula 2 05/04/22 14:05 05/04/22 14:05 05/04/22 13:31 05/04/22 14:05 05/04/22 09:46 05/04/22 09:46 General appearance: no acute distress Exam: comatose Head Head exam: Present atraumatic and normocephalic Eye Eye exam: Present EOMI and PERRL ENT ENT exam: Present mucous membranes moist, normal exam and normal external ear exam Neck Neck exam: Present normal inspection; Absent lymphadenopathy, tenderness or thyromegaly Respiratory Respiratory exam: Absent accessory muscle use, respiratory distress or wheezes Cardiovascular Cardiovascular exam: Present normal rate and rhythm; Absent JVD GI/Abdominal GI/Abdominal exam: Present normal bowel sounds and soft; Absent organomegaly or tenderness Rectal Rectal exam: Present deferred Extremities Exam Extremities exam: Present full ROM, normal capillary refill and normal inspection; Absent tenderness Neurological Exam Neurological exam: Absent motor sensory deficit Additional comments: Comatose Psychiatric Psychiatric exam: Present normal affect and normal mood; Absent anxious or depressed Skin Skin exam: Present dry and intact DATA Data Completed and Pending Labs: Labs from last 24 hours 05/04/22 05/04/22 05/04/22 14:12 14:12 14:12 WBC RBC Hgb Hct POC Hct MCV MCH MCHC RDW Plt Count MPV Immature Gran % (Auto) Neut % (Auto) Lymph % (Auto) Sully % (Auto) Eos % (Auto) Baso % (Auto) Lymph # (Auto) Sully # (Auto) Eos # (Auto) Baso # (Auto) Immature Gran # Absolute Neutrophils ABG Methemoglobin VBG pH POC VBG pH VBG pCO2 POC VBG pCO2 at Temp VBG pO2 POC VBG pO2 VBG HCO3 POC VBG HCO3 VBG Total CO2 POC VBG Total CO2 VBG O2 Saturation POC Venous O2 Sat VBG Base Excess POC VBG Base Excess VBG Lactic Acid Carboxyhemoglobin Total Hemoglobin POC Sodium POC Potassium POC Chloride POC Total CO2 POC BUN POC Creatinine POC Glucose POC WB Ioniz Calcium Prolactin Pending Urine Opiates Screen Pending Ur Opiates Confirm Pending Ur Oxycodone Screen Pending Urine Methadone Screen Pending Ur Methadone Confirm Pending Ur Barbiturates Screen Pending Ur Barbiturate Confirm Pending Ur Phencyclidine Scrn Pending Urine PCP Confirm Pending Ur Amphetamines Screen Pending U Amphetamines Confirm Pending U Benzodiazepines Scrn Pending Ur Benzodiazepine, Qnt Pending Urine Cocaine Screen Pending Urine Cocaine Confirm Pending U Cannabinoids Confirm Pending U Marijuana (THC) Screen Pending Urine Alcohol Pending Ethyl Alcohol mg/dL Pending Ethyl Alcohol g/dL Pending 05/04/22 05/04/22 05/04/22 12:26 10:15 08:22 WBC 5.2 RBC 3.73 L Hgb 10.9 L Hct 34.4 L POC Hct MCV 92.2 MCH 29.2 MCHC 31.7 RDW 14.2 Plt Count 143 MPV 10.8 Immature Gran % (Auto) 0.2 Neut % (Auto) 75.9 Lymph % (Auto) 14.7 L Sully % (Auto) 5.9 Eos % (Auto) 2.7 Baso % (Auto) 0.6 Lymph # (Auto) 0.77 L Sully # (Auto) 0.31 Eos # (Auto) 0.14 Baso # (Auto) 0.03 Immature Gran # 0.01 Absolute Neutrophils 3.97 ABG Methemoglobin 0.2 L VBG pH 7.36 POC VBG pH 7.34 VBG pCO2 47.5 POC VBG pCO2 at Temp 49.4 VBG pO2 47.9 H POC VBG pO2 27 VBG HCO3 26.2 POC VBG HCO3 26.7 VBG Total CO2 27.6 POC VBG Total CO2 28.0 VBG O2 Saturation 78.7 H POC Venous O2 Sat 46.0 VBG Base Excess 0 POC VBG Base Excess 1.0 VBG Lactic Acid 3.6 H Carboxyhemoglobin 4.5 H Total Hemoglobin 13.7 POC Sodium POC Potassium POC Chloride POC Total CO2 POC BUN POC Creatinine POC Glucose POC WB Ioniz Calcium Prolactin Urine Opiates Screen Ur Opiates Confirm Ur Oxycodone Screen Urine Methadone Screen Ur Methadone Confirm Ur Barbiturates Screen Ur Barbiturate Confirm Ur Phencyclidine Scrn Urine PCP Confirm Ur Amphetamines Screen U Amphetamines Confirm U Benzodiazepines Scrn Ur Benzodiazepine, Qnt Urine Cocaine Screen Urine Cocaine Confirm U Cannabinoids Confirm U Marijuana (THC) Screen Urine Alcohol Ethyl Alcohol mg/dL Ethyl Alcohol g/dL 05/04/22 08:05 WBC RBC Hgb Hct POC Hct 32.0 L MCV MCH MCHC RDW Plt Count MPV Immature Gran % (Auto) Neut % (Auto) Lymph % (Auto) Sully % (Auto) Eos % (Auto) Baso % (Auto) Lymph # (Auto) Sully # (Auto) Eos # (Auto) Baso # (Auto) Immature Gran # Absolute Neutrophils ABG Methemoglobin VBG pH POC VBG pH VBG pCO2 POC VBG pCO2 at Temp VBG pO2 POC VBG pO2 VBG HCO3 POC VBG HCO3 VBG Total CO2 POC VBG Total CO2 VBG O2 Saturation POC Venous O2 Sat VBG Base Excess POC VBG Base Excess VBG Lactic Acid Carboxyhemoglobin Total Hemoglobin POC Sodium 143 POC Potassium 4.0 POC Chloride 103 POC Total CO2 24.0 POC BUN 14 POC Creatinine 1.1 POC Glucose 90 POC WB Ioniz Calcium 1.07 L Prolactin Urine Opiates Screen Ur Opiates Confirm Ur Oxycodone Screen Urine Methadone Screen Ur Methadone Confirm Ur Barbiturates Screen Ur Barbiturate Confirm Ur Phencyclidine Scrn Urine PCP Confirm Ur Amphetamines Screen U Amphetamines Confirm U Benzodiazepines Scrn Ur Benzodiazepine, Qnt Urine Cocaine Screen Urine Cocaine Confirm U Cannabinoids Confirm U Marijuana (THC) Screen Urine Alcohol Ethyl Alcohol mg/dL Ethyl Alcohol g/dL A/P Assessment and plan (1) Post-ictal state: Status: Acute (2) Status epilepticus: Status: Acute (3) Dementia: Status: Acute (4) Depression: Status: Acute (5) Essential hypertension: Status: Acute Narrative A/P Narrative: Assessment and Plans: 1. Post-ictal confusion associated with recent tonic chronic seizure, medications noncompliant: Observation PCU telemetry Neuro Status check q2hr NPO with IV fluid to avoid aspiration Prolactin Lactic acid Drug screening Serum alcohol level Keppra blood level Keppra 1000mg IV BID Ativan 2mg IV PRN seizure activities Holding other oral antiepileptics due to patient not ready to swallow any pills 2. Suspected dementia: Outpatient dementia evaluation by PCP 3. Essential hypertension: Holding oral antihypertensives due to patient not ready to swallow any pills 4. Depression: Holding oral antidepressants due to patient not ready to swallow any pills GI ppx: Protonix IV DVT ppx: Lovenox Code status: Full Prognosis: guarded Disposition: observation PCU Time Spent With Patient Time: Total time spent is greater than 50% in coordination of care (as documented) at patient's floor/unit and/or counseling patient: Initial: Total time with patient: 55 - 74 minutes
[2022-05-04 14:28] LABS: Alcohol, Blood < 10.0 mg/dL; Alcohol,Blood < 0.010 gm/dL (<0.010)
[2022-05-04 14:53] LABS: Alcohol, Urine None Detected; Amphetamine Screen,Urine None detected; Barbiturate Screen,Urine None detected; Benzodiazepines Screen,Urine Suspect positive; Cannabinoid Screen,Urine Suspect Positive; Cocaine Screen,Urine None detected; Opiate Screen,Urine None detected; Oxycodone, Urine Screen None detected; Phencyclidine Screen,Urine None detected
[2022-05-04] MEDS: 0.9 % SODIUM CHLORIDE 1,000 ML IV SCH (15:30)
[2022-05-04] MEDS: ACETAMINOPHEN 650 MG/65 ML BAG IV PRN (18:20)
[2022-05-04] MEDS: levETIRAcetam 1,000 MG in 0.9 % SODIUM CHLORIDE 100 ML IV SCH (21:15)
[2022-05-04] MEDS: 0.9 % SODIUM CHLORIDE 10 ML SYRINGE IV SCH (21:31)
[2022-05-04] MEDS: DOCUSATE SODIUM 100 MG CAPSULE PO SCH (21:31)
[2022-05-04] MEDS: BETAMETHASONE DIPR CRM 0.05% 15GM TUBE TOPICAL SCH (21:31)
[2022-05-05] MEDS: 0.9 % SODIUM CHLORIDE 1,000 ML IV SCH ×2 (02:42→13:32)
[2022-05-05] MEDS: 0.9 % SODIUM CHLORIDE 10 ML SYRINGE IV SCH ×3 (06:14→21:56)
[2022-05-05] MEDS: DOCUSATE SODIUM 100 MG CAPSULE PO SCH ×2 (07:03→21:54)
[2022-05-05] MEDS: BETAMETHASONE DIPR CRM 0.05% 15GM TUBE TOPICAL SCH ×2 (07:03→21:54)
[2022-05-05] MEDS: PANTOPRAZOLE 40 MG VIAL IV SCH (07:03)
--- NOTE | 2022-05-05 07:55 | Internal Med Progress Note ---
SUBJECTIVE Subjective Patient information: Note initiated : 05/05/22 at 7:50 am Service Date, if different from initiated Date: [] Patient: Ilir Mejía 77 y/o M admitted on 05/04/22 for seizure. Chief Complaint: [] Interval history: Mr. Mejía is a 77 year old M history of seizures, hypertensions, depressions, questionable dementia, presenting with 1 day history of acute onset seizure activities. It was reported that last similar seizure activities episode was a few months ago. Patient forgot to take 6 antiseizure's medications yesterday evening. He will often forget to take his medications according to family. Earlier today he was weakness by family member to have tonic-clonic seizure activity lasting approximately 2 minutes. EMS called and gave the patient 1 dose of 5 mg IM Ativan, failed to break the seizure activities. A repeat 5 mg IM Ativan dose was given finally broke the seizure activities. Patient sent to ED for further evaluations. Patient still appears to be in postictal coma state. He is unable to carry a conversation with me. He is sleeping and cannot be aroused by either voice or painful stimuli. CT of the head without contrast no acute intracranial abnormalities. Keppra 1000 Mg IV one-time dose given in the ED. Admission request call for postictal confusions associated with recent seizure activity is likely due to medications noncompliant. 2/: Patient still confused this morning. What ever question I ask him, he would only say "again again and again". No more reported seizure activities overnight since admissions. Serum lactic acid 4.3 yesterday evening. Continue IV Keppra 1000 mg twice daily. Ativan IV push as needed for seizure activities. Keep the patient n.p.o. with IV fluid infusions until patient is more awake and alert and will be performed bedside swallowing evaluations before resuming his oral medications and food/drink. Overall prognosis still guarded. Keep the patient in observation PCU with telemetry. Constitutional Vitals: Vital Signs Temp Pulse Resp BP Pulse Ox O2 Del Method O2 Flow Rate 37.2 C 52 L 12 135/64 96 Room Air 2 05/05/22 04:00 05/05/22 02:01 05/05/22 04:00 05/05/22 04:00 05/05/22 04:00 05/05/22 00:01 05/04/22 09:46 Period Temp Pulse Resp BP Sys/Overton Pulse Ox O2 Del Method O2 Flow Rate Last 24 Hr 36.7 C-38.6 C 51-64 12-24 112-183/50-163 95-100 Nasal Cannula- Room Air 2-2 Intake and Output 05/04/22 05/05/22 05/05/22 19:59 03:59 11:59 Intake Total 1065 1110 0 Output Total 3 1 1 Balance 1062 1109 -1 Weight 80.603 kg Intake & Output: Intake & Output 05/04/22 05/05/22 05/05/22 19:59 03:59 11:59 Intake Total 1065 1110 0 Output Total 3 1 1 Balance 1062 1109 -1 Weight 80.603 kg Intake: IV 1065 1110 Sodium Chloride 0.9% 1,000 ml @ 1000 1000 100 mls/hr IV .Q10H [facility] Rx#: [id number] Keppra 1,000 mg In Sodium 110 Chloride 0.9% 100 ml @ 200 mls/ hr IV Q12 [facility] Rx#:[id number] Oral 0 Output: # of times incontinent of urine 3 1 1 Other: # Voids 1 1 Head Head exam: Present atraumatic and normal inspection Eye Eye exam: Present normal appearance ENT ENT exam: Present mucous membranes moist, normal exam and normal external ear exam Neck Neck exam: Present normal inspection Respiratory Respiratory exam: Present normal respiratory exam Cardiovascular Cardiovascular exam: Present normal rate and rhythm GI/Abdominal GI/Abdominal exam: Present normal bowel sounds Back Exam Back exam: Present normal inspection Neurological Exam Neurological exam: Present altered Skin Skin exam: Present intact and warm OBJ DATA Labs 05/04/22 08:22 Labs: Abnormal Lab Results 05/04/22 05/04/22 05/04/22 14:42 14:12 14:12 RBC Hgb Hct POC Hct Lymph % (Auto) Lymph # (Auto) ABG Methemoglobin VBG pO2 VBG O2 Saturation VBG Lactic Acid 4.3 H* Carboxyhemoglobin POC WB Ioniz Calcium Prolactin 16.2 H U Benzodiazepines Scrn Suspect positive A U Marijuana (THC) Screen Suspect positive A 05/04/22 05/04/22 05/04/22 12:26 10:15 08:22 RBC 3.73 L Hgb 10.9 L Hct 34.4 L POC Hct Lymph % (Auto) 14.7 L Lymph # (Auto) 0.77 L ABG Methemoglobin 0.2 L VBG pO2 47.9 H VBG O2 Saturation 78.7 H VBG Lactic Acid 3.6 H Carboxyhemoglobin 4.5 H POC WB Ioniz Calcium Prolactin U Benzodiazepines Scrn U Marijuana (THC) Screen 05/04/22 08:05 RBC Hgb Hct POC Hct 32.0 L Lymph % (Auto) Lymph # (Auto) ABG Methemoglobin VBG pO2 VBG O2 Saturation VBG Lactic Acid Carboxyhemoglobin POC WB Ioniz Calcium 1.07 L Prolactin U Benzodiazepines Scrn U Marijuana (THC) Screen Meds: Medications Albuterol/Ipratropium (Ipratropium/Albuterol 3 Ml Ampul.Neb) 3 ml NEB Q4HRT PRN PRN Reason: Wheezing Betamethasone Dipropion Augmented (Betamethasone Dipr Crm 0.05% 15gm Tube) 1 dose TOPICAL BID [facility] Last Admin: 05/05/22 07:03 Dose: Not Given Docusate Sodium (Docusate Sodium 100 Mg Capsule) 100 mg PO BID [facility] Last Admin: 05/05/22 07:03 Dose: Not Given Enoxaparin Sodium (Enoxaparin 40 Mg/0.4 Ml Syringe) 40 mg SQ DAILY [facility] Hydralazine HCl (Hydralazine 20 Mg/Ml Vial) 10 mg IV Q4-6HP PRN PRN Reason: Hypertension Sodium Chloride (Sodium Chloride 0.9%) 1,000 mls @ 100 mls/hr IV .Q10H [facility] Last Admin: 05/05/22 02:42 Dose: 100 mls/hr Levetiracetam 1,000 mg/ Sodium (Chloride) 110 mls @ 200 mls/hr IV Q12 [facility] Last Infusion: 05/05/22 03:16 Dose: Infused Acetaminophen (Ofirmev) 650 mg in 65 mls @ 130 mls/hr IV Q6HP PRN; Protocol PRN Reason: PAIN/FEVER > 101 Last Infusion: 05/04/22 18:55 Dose: Infused Lactulose (Lactulose 20 Gm/30 Ml Oral.Angelika) 10 gm PO DAILYP PRN PRN Reason: Constipation Lidocaine (Lidocaine Patch) 1 patch TOPICAL QDAY [facility] Lorazepam (Lorazepam 2 Mg/Ml Vial) 2 mg IV Q1HP PRN PRN Reason: Seizure Activity Ondansetron HCl (Ondansetron 4 Mg/2 Ml Vial) 4 mg IV Q4HP PRN; Protocol PRN Reason: Nausea And Vomiting Pantoprazole Sodium (Pantoprazole 40 Mg Vial) 40 mg IV QAMAC [facility] Last Admin: 05/05/22 07:03 Dose: 40 mg Senna (Sennosides 1 Tablet) 2 tab PO HSP PRN PRN Reason: Constipation Sodium Chloride (0.9 % Sodium Chloride 10 Ml Syringe) 10 ml IV Q8 [facility] Last Admin: 05/05/22 06:14 Dose: Not Given ABG Interpretation ABG results: 05/04/22 10:15 ABG Methemoglobin 0.2 L VBG pH 7.36 VBG pCO2 47.5 VBG pO2 47.9 H VBG HCO3 26.2 VBG Total CO2 27.6 VBG O2 Saturation 78.7 H VBG Base Excess 0 A/P Assessment and plan (1) Post-ictal state: Status: Acute (2) Status epilepticus: Status: Acute (3) Dementia: Status: Acute (4) Depression: Status: Acute (5) Essential hypertension: Status: Acute Narrative A/P Narrative: Assessment and Plans: 1. Post-ictal confusion associated with recent tonic chronic seizure, medications noncompliant: Observation PCU telemetry Neuro Status check q2hr NPO with IV fluid to avoid aspiration Prolactin 16.2 Serial lactic acid Drug screening: positive for benzodiazepine and marijuana Serum alcohol level <0.01 Keppra 1000mg IV BID Ativan 2mg IV PRN seizure activities Holding other oral antiepileptics due to patient not ready to swallow any pills 2. Suspected dementia: Outpatient dementia evaluation by PCP 3. Essential hypertension: Holding oral antihypertensives due to patient not ready to swallow any pills 4. Depression: Holding oral antidepressants due to patient not ready to swallow any pills GI ppx: Protonix IV DVT ppx: Lovenox Code status: DNI Prognosis: guarded Disposition: observation PCU Time Spent With Patient Time: Total time spent is greater than 50% in coordination of care (as documented) at patient's floor/unit and/or counseling patient: Subsequent: Total time with patient: 35 - 49 minutes
[2022-05-05] MEDS: levETIRAcetam 1,000 MG in 0.9 % SODIUM CHLORIDE 100 ML IV SCH ×2 (09:13→20:28)
[2022-05-05] MEDS: ENOXAPARIN 40 MG/0.4 ML SYRINGE SQ SCH (09:15)
[2022-05-05] MEDS: LIDOCAINE PATCH TOPICAL SCH ×2 (13:31→23:23)
--- NOTE | 2022-05-05 13:56 | Internal Med Progress Note ---
SUBJECTIVE Subjective Patient information: Note initiated : 05/05/22 at 1:49 pm Service Date, if different from initiated Date: [] Patient: Ilir Mejía 77 y/o M admitted on 05/04/22 for seizure. Chief Complaint: [] Interval history: Mr. Mejía is a 77 year old M history of seizures, hypertensions, depressions, questionable dementia, presenting with 1 day history of acute onset seizure activities. It was reported that last similar seizure activities episode was a few months ago. Patient forgot to take 6 antiseizure's medications yesterday evening. He will often forget to take his medications according to family. Earlier today he was weakness by family member to have tonic-clonic seizure activity lasting approximately 2 minutes. EMS called and gave the patient 1 dose of 5 mg IM Ativan, failed to break the seizure activities. A repeat 5 mg IM Ativan dose was given finally broke the seizure activities. Patient sent to ED for further evaluations. Patient still appears to be in postictal coma state. He is unable to carry a conversation with me. He is sleeping and cannot be aroused by either voice or painful stimuli. CT of the head without contrast no acute intracranial abnormalities. Keppra 1000 Mg IV one-time dose given in the ED. Admission request call for postictal confusions associated with recent seizure activity is likely due to medications noncompliant. 2/: Patient still confused this morning. What ever question I ask him, he would only say "again again and again". No more reported seizure activities overnight since admissions. Serum lactic acid 4.3 yesterday evening. Continue IV Keppra 1000 mg twice daily. Ativan IV push as needed for seizure activities. Keep the patient n.p.o. with IV fluid infusions until patient is more awake and alert and will be performed bedside swallowing evaluations before resuming his oral medications and food/drink. Overall prognosis still guarded. Keep the patient in observation PCU with telemetry. Constitutional Vitals: Vital Signs Temp Pulse Resp BP Pulse Ox O2 Del Method O2 Flow Rate 97 F 56 L 15 132/81 100 Room Air 2 05/05/22 12:01 05/05/22 12:05/05/22 12:01 05/05/22 12:01 05/05/22 12:05/05/22 08:00 05/04/22 09:46 Period Temp Pulse Resp BP Sys/Overton Pulse Ox O2 Del Method O2 Flow Rate Last 24 Hr 97 F-101.5 F 42-64 12-18 116-165/50-84 94-100 Room Air-Room Air Intake and Output 05/05/22 05/05/22 05/05/22 03:59 11:59 19:59 Intake Total 1257 000 3617 Output Total 1 2 Balance 6860 275 2629 Intake & Output: Intake & Output 05/05/22 05/05/22 05/05/22 03:59 11:59 19:59 Intake Total 1665 950 9847 Output Total 1 2 Balance 9382 067 5078 Intake: IV 6574 944 2490 Sodium Chloride 0.9% 1,000 ml @ 1000 1000 100 mls/hr IV .Q10H [facility] Rx#: [id number] Keppra 1,000 mg In Sodium 110 110 Chloride 0.9% 100 ml @ 200 mls/ hr IV Q12 [facility] Rx#:[id number] Oral 0 Output: Void Amount 0 # of times incontinent of urine 1 2 Other: # Voids 1 1 Exam: General: , No acute Distress Eyes/N/T: EOMI, Head/Neck: neck supple, CV: RRR, No murmurs, Pulm: Clear b/l, no wheezing/rhonchi/rales Abd: soft, nontender, +BS x4 Ext: no clubbing/cyanosis/edema Neuro: no focal deficits, moves all extremities, Skin: warm/dry OBJ DATA Labs 05/04/22 08:22 Labs: Abnormal Lab Results 05/04/22 05/04/22 05/04/22 14:42 14:12 14:12 RBC Hgb Hct POC Hct Lymph % (Auto) Lymph # (Auto) ABG Methemoglobin VBG pO2 VBG O2 Saturation VBG Lactic Acid 4.3 H* Carboxyhemoglobin POC WB Ioniz Calcium Prolactin 16.2 H U Benzodiazepines Scrn Suspect positive A U Marijuana (THC) Screen Suspect positive A 05/04/22 05/04/22 05/04/22 12:26 10:15 08:22 RBC 3.73 L Hgb 10.9 L Hct 34.4 L POC Hct Lymph % (Auto) 14.7 L Lymph # (Auto) 0.77 L ABG Methemoglobin 0.2 L VBG pO2 47.9 H VBG O2 Saturation 78.7 H VBG Lactic Acid 3.6 H Carboxyhemoglobin 4.5 H POC WB Ioniz Calcium Prolactin U Benzodiazepines Scrn U Marijuana (THC) Screen 05/04/22 08:05 RBC Hgb Hct POC Hct 32.0 L Lymph % (Auto) Lymph # (Auto) ABG Methemoglobin VBG pO2 VBG O2 Saturation VBG Lactic Acid Carboxyhemoglobin POC WB Ioniz Calcium 1.07 L Prolactin U Benzodiazepines Scrn U Marijuana (THC) Screen Meds: Medications Albuterol/Ipratropium (Ipratropium/Albuterol 3 Ml Ampul.Neb) 3 ml NEB Q4HRT PRN PRN Reason: Wheezing Betamethasone Dipropion Augmented (Betamethasone Dipr Crm 0.05% 15gm Tube) 1 dose TOPICAL BID [facility] Last Admin: 05/05/22 07:03 Dose: Not Given Docusate Sodium (Docusate Sodium 100 Mg Capsule) 100 mg PO BID [facility] Last Admin: 05/05/22 07:03 Dose: Not Given Enoxaparin Sodium (Enoxaparin 40 Mg/0.4 Ml Syringe) 40 mg SQ DAILY [facility] Last Admin: 05/05/22 09:15 Dose: 40 mg Hydralazine HCl (Hydralazine 20 Mg/Ml Vial) 10 mg IV Q4-6HP PRN PRN Reason: Hypertension Sodium Chloride (Sodium Chloride 0.9%) 1,000 mls @ 100 mls/hr IV .Q10H [facility] Last Admin: 05/05/22 13:32 Dose: 100 mls/hr Levetiracetam 1,000 mg/ Sodium (Chloride) 110 mls @ 200 mls/hr IV Q12 [facility] Last Infusion: 05/05/22 09:50 Dose: Infused Acetaminophen (Ofirmev) 650 mg in 65 mls @ 130 mls/hr IV Q6HP PRN; Protocol PRN Reason: PAIN/FEVER > 101 Last Infusion: 05/04/22 18:55 Dose: Infused Lactulose (Lactulose 20 Gm/30 Ml Oral.Aneglika) 10 gm PO DAILYP PRN PRN Reason: Constipation Lidocaine (Lidocaine Patch) 1 patch TOPICAL QDAY [facility] Last Admin: 05/05/22 13:31 Dose: Not Given Lorazepam (Lorazepam 2 Mg/Ml Vial) 2 mg IV Q1HP PRN PRN Reason: Seizure Activity Ondansetron HCl (Ondansetron 4 Mg/2 Ml Vial) 4 mg IV Q4HP PRN; Protocol PRN Reason: Nausea And Vomiting Pantoprazole Sodium (Pantoprazole 40 Mg Vial) 40 mg IV QAMAC [facility] Last Admin: 05/05/22 07:03 Dose: 40 mg Senna (Sennosides 1 Tablet) 2 tab PO HSP PRN PRN Reason: Constipation Sodium Chloride (0.9 % Sodium Chloride 10 Ml Syringe) 10 ml IV Q8 [facility] Last Admin: 05/05/22 13:32 Dose: Not Given ABG Interpretation ABG results: 05/04/22 10:15 ABG Methemoglobin 0.2 L VBG pH 7.36 VBG pCO2 47.5 VBG pO2 47.9 H VBG HCO3 26.2 VBG Total CO2 27.6 VBG O2 Saturation 78.7 H VBG Base Excess 0 A/P Narrative A/P Narrative: Assessment and Plans: *Post-ictal confusion associated with recent tonic chronic seizure, suspected medications noncompliant per family: -Neuro Status check q2hr -NPO pending ST eval, poor bedsidewith IV fluid to avoid aspiration -Serial lactic acid improved -Drug screening: positive for benzodiazepine and marijuana -Keppra 1000mg IV BID; Ativan 2mg IV PRN seizure activities -Holding other oral antiepileptics until swallow eval *Suspected dementia, probably vascular: Outpatient dementia evaluation by PCP *HTN/HLD: -Holding oral antihypertensives due to patient not ready to swallow any pills, prn IV *Depression: restart when PO intake *h/o CVAx2: *Anxiety/depression: *GERD: *Anemia, chronic: *ppx: Lovenox / ppi Code status: DNI Prognosis: guarded Time Spent With Patient Time: Total time spent is greater than 50% in coordination of care (as documented) at patient's floor/unit and/or counseling patient:
[2022-05-05] MEDS ORDERED: MIDAZOLAM 2 MG/2 ML VIAL ONE (14:41)
--- NOTE | 2022-05-05 15:47 | Magnetic Resonance Report ---
INDICATION: Seizures COMPARISON: Previous brain CT scan dated 05/04/2022 TECHNIQUE: Sagittal T1 FLAIR images. Axial DWI, T1 FLAIR, T2 FLAIR, T2, GRE. Coronal T2 FSE. FINDINGS: Cerebral hemispheres:No restricted diffusion. No acute infarction. No susceptibility. No hemorrhagic abnormality. No intra-axial signal abnormality or localized mass effect. There is white matter abnormality consistent with small vessel ischemic change. No focal lesion There is encephalomalacia within the left temporal and occipital lobes. This is unchanged. This is consistent with old infarction. No acute infarction. No acute signal abnormality or localized mass effect. Brain stem and cerebellum:No intra-axial abnormalities. Extra-axial:Normal flow void within vessels at the base of the brain. No subdural or epidural hematoma. No detectable subarachnoid hemorrhage Cavernous sinuses and basilar cisterns are normal. Skull:No calvarial lesions. No lytic lesion. No detectable fracture. Temporal bones:Mastoid sinuses are normal. No fluid or soft tissue intensity within either middle ear. Inner ear structures are normal Orbits, facial soft tissues:Globes are normal. No intraorbital abnormality. Facial soft tissues are negative Paranasal sinuses:Maxillary, frontal, ethmoid sinuses are negative. Sphenoid sinuses are negative. No mucosal thickening. No air-fluid levels. No discrete soft tissue mass IMPRESSION: 1. Left temporal and occipital encephalomalacia 2. Atrophy and white matter abnormality consistent with small vessel ischemic change 3. No acute abnormality. No acute infarction Interpreted and Authenticated by: Dennis Schmitt 05/05/22
[2022-05-05] MEDS: ACETAMINOPHEN 650 MG/65 ML BAG IV PRN ×2 (16:32→23:15)
[2022-05-06] MEDS: 0.9 % SODIUM CHLORIDE 1,000 ML IV SCH ×2 (00:30→06:35)
[2022-05-06] MEDS: 0.9 % SODIUM CHLORIDE 10 ML SYRINGE IV SCH ×3 (05:42→21:02)
[2022-05-06] MEDS: PANTOPRAZOLE 40 MG VIAL IV SCH (07:33)
[2022-05-06] MEDS: DOCUSATE SODIUM 100 MG CAPSULE PO SCH ×2 (07:59→20:57)
[2022-05-06] MEDS: BETAMETHASONE DIPR CRM 0.05% 15GM TUBE TOPICAL SCH ×2 (07:59→21:02)
--- NOTE | 2022-05-06 08:04 | Internal Med Progress Note ---
SUBJECTIVE Subjective Patient information: Note initiated : 05/06/22 at 7:58 am Service Date, if different from initiated Date: [] Patient: Ilir Mejía 77 y/o M admitted on 05/04/22 for seizure. Chief Complaint: [] Interval history: Mr. Mejía is a 77 year old M history of seizures, hypertensions, depressions, questionable dementia, presenting with 1 day history of acute onset seizure activities. It was reported that last similar seizure activities episode was a few months ago. Patient forgot to take 6 antiseizure's medications yesterday evening. He will often forget to take his medications according to family. Earlier today he was weakness by family member to have tonic-clonic seizure activity lasting approximately 2 minutes. EMS called and gave the patient 1 dose of 5 mg IM Ativan, failed to break the seizure activities. A repeat 5 mg IM Ativan dose was given finally broke the seizure activities. Patient sent to ED for further evaluations. Patient still appears to be in postictal coma state. He is unable to carry a conversation with me. He is sleeping and cannot be aroused by either voice or painful stimuli. CT of the head without contrast no acute intracranial abnormalities. Keppra 1000 Mg IV one-time dose given in the ED. Admission request call for postictal confusions associated with recent seizure activity is likely due to medications noncompliant. 2/2: Patient still confused this morning. What ever question I ask him, he would only say "again again and again". No more reported seizure activities overnight since admissions. Serum lactic acid 4.3 yesterday evening. Continue IV Keppra 1000 mg twice daily. Ativan IV push as needed for seizure activities. Keep the patient n.p.o. with IV fluid infusions until patient is more awake and alert and will be performed bedside swallowing evaluations before resuming his oral medications and food/drink. Overall prognosis still guarded. Keep the patient in observation PCU with telemetry. 2/3 Family at bedside. Patient is alert and awake sitting in chair. However he is confused and not answering questions appropriately. Patient does seem fixated at times on things such as his shoulder. At times patient is clear in mentation and answering appropriately at other times he has not. Review of systems: Unable to gather given confusion. Constitutional Vitals: Vital Signs Temp Pulse Resp BP Pulse Ox O2 Del Method O2 Flow Rate 98.4 F 57 L 16 144/93 100 Room Air 2 05/06/22 04:01 05/06/22 04:01 05/06/22 06:02 05/06/22 06:02 05/06/22 06:02 05/05/22 18:02 05/04/22 09:46 Period Temp Pulse Resp BP Sys/Overton Pulse Ox O2 Del Method O2 Flow Rate Last 24 Hr 97 F-100.1 F 42-68 11-20 89-169/55-96 92-100 Room Air-Room Air Intake and Output 05/05/22 05/06/22 05/06/22 19:59 03:59 11:59 Intake Total 1065 1175 Output Total 3 267 640 Balance 1062 908 -640 Weight 80.966 kg Intake & Output: Intake & Output 05/05/22 05/06/22 05/06/22 19:59 03:59 11:59 Intake Total 1065 1175 Output Total 3 267 640 Balance 1062 908 -640 Weight 80.966 kg Intake: IV 1065 1175 Sodium Chloride 0.9% 1,000 ml @ 1000 1000 100 mls/hr IV .Q10H [facility] Rx#: [id number] Keppra 1,000 mg In Sodium 110 Chloride 0.9% 100 ml @ 200 mls/ hr IV Q12 [facility] Rx#:[id number] Output: Void Amount 265 640 # of times incontinent of urine 3 2 Other: Meal Dinner Percent of Meal Consumed 75% 0% Feeding Ability Total Assistance Total Assistance Urine Appearance Clear Urine Color Yellow Yellow Urine Odor Normal Normal Stool Size Copious Stool Color Brown Stool Consistency Soft Loose # Voids 2 Exam: General: Alert and awake, No acute Distress Eyes/N/T: EOMI, Head/Neck: neck supple, CV: RRR, 2/6SM, Pulm: Clear b/l, no wheezing/rhonchi/rales Abd: soft, nontender, +BS x4 Ext: no clubbing/cyanosis/edema Neuro: alert, follows simple commands, does not answer questions appropriately. per nurse he has moments of clarity. moves all extremities spontaneously. Skin: warm/dry OBJ DATA Labs 05/04/22 08:22 05/06/22 06:10 Labs: Abnormal Lab Results 05/04/22 05/04/22 05/04/22 14:42 14:12 14:12 RBC Hgb Hct POC Hct Lymph % (Auto) Lymph # (Auto) ABG Methemoglobin VBG pO2 VBG O2 Saturation VBG Lactic Acid 4.3 H* Carboxyhemoglobin POC WB Ioniz Calcium Prolactin 16.2 H U Benzodiazepines Scrn Suspect positive A U Marijuana (THC) Screen Suspect positive A 05/04/22 05/04/22 05/04/22 12:26 10:15 08:22 RBC 3.73 L Hgb 10.9 L Hct 34.4 L POC Hct Lymph % (Auto) 14.7 L Lymph # (Auto) 0.77 L ABG Methemoglobin 0.2 L VBG pO2 47.9 H VBG O2 Saturation 78.7 H VBG Lactic Acid 3.6 H Carboxyhemoglobin 4.5 H POC WB Ioniz Calcium Prolactin U Benzodiazepines Scrn U Marijuana (THC) Screen 05/04/22 08:05 RBC Hgb Hct POC Hct 32.0 L Lymph % (Auto) Lymph # (Auto) ABG Methemoglobin VBG pO2 VBG O2 Saturation VBG Lactic Acid Carboxyhemoglobin POC WB Ioniz Calcium 1.07 L Prolactin U Benzodiazepines Scrn U Marijuana (THC) Screen Meds: Medications Albuterol/Ipratropium (Ipratropium/Albuterol 3 Ml Ampul.Neb) 3 ml NEB Q4HRT PRN PRN Reason: Wheezing Betamethasone Dipropion Augmented (Betamethasone Dipr Crm 0.05% 15gm Tube) 1 dose TOPICAL BID [facility] Last Admin: 05/05/22 21:54 Dose: Not Given Docusate Sodium (Docusate Sodium 100 Mg Capsule) 100 mg PO BID [facility] Last Admin: 05/05/22 21:54 Dose: Not Given Enoxaparin Sodium (Enoxaparin 40 Mg/0.4 Ml Syringe) 40 mg SQ DAILY [facility] Last Admin: 05/05/22 09:15 Dose: 40 mg Hydralazine HCl (Hydralazine 20 Mg/Ml Vial) 10 mg IV Q4-6HP PRN PRN Reason: Hypertension Sodium Chloride (Sodium Chloride 0.9%) 1,000 mls @ 100 mls/hr IV .Q10H [facility] Last Admin: 05/06/22 06:35 Dose: Not Given Levetiracetam 1,000 mg/ Sodium (Chloride) 110 mls @ 200 mls/hr IV Q12 [facility] Last Infusion: 05/05/22 21:00 Dose: Infused Acetaminophen (Ofirmev) 650 mg in 65 mls @ 130 mls/hr IV Q6HP PRN; Protocol PRN Reason: PAIN/FEVER > 101 Last Infusion: 05/06/22 00:40 Dose: Infused Lactulose (Lactulose 20 Gm/30 Ml Oral.Angelika) 10 gm PO DAILYP PRN PRN Reason: Constipation Lidocaine (Lidocaine Patch) 1 patch TOPICAL QDAY [facility] Last Admin: 05/05/22 23:23 Dose: 1 patch Lorazepam (Lorazepam 2 Mg/Ml Vial) 2 mg IV Q1HP PRN PRN Reason: Seizure Activity Ondansetron HCl (Ondansetron 4 Mg/2 Ml Vial) 4 mg IV Q4HP PRN; Protocol PRN Reason: Nausea And Vomiting Pantoprazole Sodium (Pantoprazole 40 Mg Vial) 40 mg IV QAMAC [facility] Last Admin: 05/06/22 07:33 Dose: 40 mg Senna (Sennosides 1 Tablet) 2 tab PO HSP PRN PRN Reason: Constipation Sodium Chloride (0.9 % Sodium Chloride 10 Ml Syringe) 10 ml IV Q8 [facility] Last Admin: 05/06/22 05:42 Dose: Not Given ABG Interpretation ABG results: 05/04/22 10:15 ABG Methemoglobin 0.2 L VBG pH 7.36 VBG pCO2 47.5 VBG pO2 47.9 H VBG HCO3 26.2 VBG Total CO2 27.6 VBG O2 Saturation 78.7 H VBG Base Excess 0 A/P Narrative A/P Narrative: Assessment and Plans: *Post-ictal obtundation/confusion associated with recent tonic chronic seizure, likely medications noncompliant per family: -MRI with encephalomalacia/atrophy but no acute pathology -Neuro Status check q2hr -Serial lactic acid improved -Drug screening: positive for benzodiazepine and marijuana -Keppra 1000mg IV BID; Ativan 2mg IV PRN seizure activities -Holding other oral antiepileptics until swallow eval *Encephalopathy, acute on chronic: seems to be more of expressive aphasia, as he comprehends simple commands -MRI with encephalomalacia/atrophy but no acute pathology *Dementia, likely vascular: Outpatient dementia evaluation by PCP *Oropharyngeal Dysphagia: -seen by ST on level 4 *HTN/HLD: -restart po meds *Depression: restart PO med *h/o CVAx2: *Anxiety/depression: *GERD: *Anemia, chronic: *ppx: Lovenox / ppi Code status: DNI Prognosis: guarded Time Spent With Patient Time: Total time spent is greater than 50% in coordination of care (as documented) at patient's floor/unit and/or counseling patient: Subsequent: Total time with patient: 50 - 65 Minutes
[2022-05-06 09:07] LABS: ALT/SGPT 11 U/L (<40); AST/SGOT 13 U/L (<40); Albumin 2.6 gm/dL (3.2-5.2); Alkaline Phosphatase 62 U/L (39-117); Bilirubin,Direct 0.2 mg/dL (<0.3); Bilirubin,Total 0.8 mg/dL (0.1-1.0); Blood Urea Nitrogen 11 mg/dL (8-23); Carbon Dioxide 23 mmol/L (22-30); Chloride 106 mmol/L (96-108); Globulin 2.7 gm/dL (2.2-3.7); Glomerular Filtration Rate 81; Glucose 79 mg/dL (70-105); Lactate Dehydrogenase 146 U/L (135-225); Phosphorous 3.2 mg/dL (2.5-4.5); Triglycerides 80 mg/dL (<150); Uric Acid 4.8 mg/dL (2.5-8.0)
[2022-05-06] MEDS: levETIRAcetam 1,000 MG in 0.9 % SODIUM CHLORIDE 100 ML IV SCH ×2 (09:07→21:00)
[2022-05-06] MEDS: ENOXAPARIN 40 MG/0.4 ML SYRINGE SQ SCH (09:07)
[2022-05-06] MEDS: LIDOCAINE PATCH TOPICAL SCH (13:52)
--- NOTE | 2022-05-06 13:55 | Discharge Summary ---
Discharge Provider Provider IMPORTANT FOLLOW-UP INFORMATION FOR PCP: Patient information: Note initiated : 05/06/22 at 1:54 pm Service Date, if different from initiated Date: [] Patient: Ilir Mejía 77 y/o M admitted on 05/04/22 for seizure. Chief Complaint: [] Date of admission: 05/04/22 15:21 Discharge date: 05/10/22 Primary care physician: Chase Sommer MD Consults: 05/04/22 Consult to Physician [CONS] Stat Comment: seizure Consulting Provider: Remington Nash Reason For Exam: Physician to Consult COURSE Hospital Course Hospital course: Interval history: Mr. Mejía is a 77 year old M history of seizures, hypertensions, depressions, questionable dementia, presenting with 1 day history of acute onset seizure activities. It was reported that last similar seizure activities episode was a few months ago. Patient forgot to take 6 antiseizure's medications yesterday evening. He will often forget to take his medications according to family. Earlier today he was weakness by family member to have tonic-clonic seizure activity lasting approximately 2 minutes. EMS called and gave the patient 1 dose of 5 mg IM Ativan, failed to break the seizure activities. A repeat 5 mg IM Ativan dose was given finally broke the seizure activities. Patient sent to ED for further evaluations. Patient still appears to be in postictal coma state. He is unable to carry a conversation with me. He is sleeping and cannot be aroused by either voice or painful stimuli. CT of the head without contrast no acute intracranial abnormalities. Keppra 1000 Mg IV one-time dose given in the ED. Admission request call for postictal confusions associated with recent seizure activity is likely due to medications noncompliant. 2/2: Patient still confused this morning. What ever question I ask him, he would only say "again again and again". No more reported seizure activities overnight since admissions. Serum lactic acid 4.3 yesterday evening. Continue IV Keppra 1000 mg twice daily. Ativan IV push as needed for seizure activities. Keep the patient n.p.o. with IV fluid infusions until patient is more awake and alert and will be performed bedside swallowing evaluations before resuming his oral medications and food/drink. Overall prognosis still guarded. Keep the patient in observation PCU with telemetry. 2/3 Family at bedside. Patient is alert and awake sitting in chair. However he is confused and not answering questions appropriately. Patient does seem fixated at times on things such as his shoulder. At times patient is clear in mentation and answering appropriately at other times he has not. 05/07 Home meds started yesterday. Per nurse patient seemed to have a little better night. This morning he still has difficulty expressing himself. 05/08 Patient doing well today. He is clear in his expression. He realizes that yesterday he felt like he could not quite express himself but was comprehending adequately. Case management for placement needs. Switch to remainder of his meds to oral 05/09 Patient doing well continues to feel better. Clear in Thought. Communicating appropriately with me. No new complaints. Working on placement. 05/10 Patient doing well. Stable for discharge. Assessment and Plans: *Post-ictal obtundation/confusion associated with recent tonic chronic seizure, likely medications noncompliant per family: -MRI with encephalomalacia/atrophy but no acute pathology *Encephalopathy, acute on chronic: Much improved today. Much more clear in his speech -seems to be more of expressive aphasia, as he comprehends simple commands -MRI with encephalomalacia/atrophy but no acute pathology -Likely acute worsening of his Dementia 2/ recent prolong seizure at home. *Dementia, likely vascular: Outpatient dementia evaluation by PCP *Oropharyngeal Dysphagia: -seen by jose MARTINEZ level 4 *HTN/HLD: *Depression: restart PO med *h/o CVAx2: *Anxiety/depression: *GERD: *Anemia, chronic: Discharge diagnosis: Seizure Encephalopathy Secondary discharge diagnosis: Dementia dysphagia hypertension depression history of stroke anxiety depression GERD chronic anemia Time Spent with Patient Time attestation: Total time spent providing and/or coordinating discharge services: Time spent: Greater than 30 minutes EXAM Constitutional Vitals: Temp Pulse Resp BP Pulse Ox O2 Del Method O2 Flow Rate 99.1 F H 68 20 165/94 99 Room Air 2 05/06/22 12:02 05/06/22 10:14 05/06/22 12:02 05/06/22 12:02 05/06/22 12:02 05/06/22 07:58 05/04/22 09:46 Discharge Data Data Completed and Pending Labs on day of discharge: Labs from last 24 hours 05/06/22 06:10 Sodium 140 Potassium 3.7 Chloride 106 Carbon Dioxide 23 Anion Gap 11.0 BUN 11 Creatinine 0.9 GFR Calculation 81 Glucose 79 Uric Acid 4.8 Calcium 8.0 L Phosphorus 3.2 Magnesium 1.8 Total Bilirubin 0.8 Direct Bilirubin 0.2 GGT 10 AST 13 ALT 11 Alkaline Phosphatase 62 Lactate Dehydrogenase 146 Total Protein 5.3 L Albumin 2.6 L Globulin 2.7 Albumin/Globulin Ratio 1.0 Triglycerides 80 Discharge Plan Patient/Caregiver Discharge Instructions Activity: increase activity as tolerated Diet: Dysphagia Level 4 Pureed Foods Prescriptions: Continued (DME) Four-wheeled walker with seat See Rx Instructions .Route .MEDSUPPLY Qty: 1 0RF Rx Instructions: As directed levetiracetam [Keppra] 500 mg tablet 500 mg PO BID Qty: 180 0RF losartan [Cozaar] 25 mg tablet 25 mg PO QDAY Qty: 90 1RF Hold Instructions: Doctor's Order atorvastatin [Lipitor] 20 mg tablet 20 mg PO QHS Qty: 90 1RF betamethasone dipropionate 0.05 % cream 1 applic topical BID 14 Days Qty: 45 0RF Rx Instructions: for use on legs escitalopram oxalate 20 mg tablet 20 mg PO QDAY Qty: 90 1RF furosemide [Lasix] 20 mg tablet 20 mg PO QDAY Qty: 90 1RF potassium chloride [Klor-Con 10] 10 mEq tablet extended release 10 meq PO QDAY Qty: 90 1RF aripiprazole [Abilify] 2 mg tablet 2 mg PO QHS Qty: 30 1RF diazepam [Valium] 2 mg tablet 1 mg PO BID Qty: 30 0RF Rx Instructions: *Must last 30 days misoprostol 200 mcg tablet 200 mcg PO BID cyanocobalamin (vitamin B-12) 1,000 mcg capsule 1,000 mcg PO QDAY cholecalciferol (vitamin D3) 50 mcg (2,000 unit) capsule 50 mcg PO QDAY aspirin [Adult Low Dose Aspirin] 81 mg tablet,delayed release (DR/EC) 81 mg PO QDAY divalproex 250 mg tablet,delayed release (DR/EC) 250 mg PO Q12H Patient Comments: TAKE 1 TABLET BY MOUTH ONCE DAILY FOR 7 DAYS THEN INCREASE TO 1 TWICE DAILY IF TOLERATED lidocaine 5 % adhesive patch,medicated 1 patch topical QDAY Qty: 15 0RF Rx Instructions: leave on most painful area for up to 12 hrs omeprazole 20 mg capsule,delayed release(DR/EC) 20 mg PO BID Qty: 180 1RF gabapentin 100 mg capsule 300 mg PO HS gabapentin 100 mg capsule 300 mg PO HS Follow Up Plan Follow up with: Chase Sommer MD [Primary Care Provider] - Patient Disposition: Xfer SNF Prognosis: Fair Rehab Potential: Fair I certify that the patient requires SNF services: Yes Overall status at discharge: patient is progressing back to baseline Discharge Orders: Discharge Order (Routine); Ordered 05/10/22 Ordered By: Miguel Gregg
[2022-05-06] MEDS ORDERED: OLANZapine 5 MG TABLET PO PRN (16:38)
[2022-05-06] MEDS: MISOPROSTOL 100 MCG TABLET PO SCH (17:30)
[2022-05-06] MEDS: ARIPIPRAZOLE 5 MG TABLET PO SCH (20:56)
[2022-05-06] MEDS: GABAPENTIN 100 MG CAPSULE PO SCH (20:57)
[2022-05-06] MEDS: ATORVASTATIN 20 MG TABLET PO SCH (20:58)
[2022-05-06] MEDS: DIAZEPAM 2 MG TABLET PO SCH (20:58)
[2022-05-06] MEDS: DIVALPROEX SODIUM 250 MG TABLET PO SCH (21:00)
[2022-05-06] MEDS: QUEtiapine 25 MG TABLET PO SCH (21:00)
[2022-05-07] MEDS: 0.9 % SODIUM CHLORIDE 10 ML SYRINGE IV SCH ×5 (06:00→21:40)
[2022-05-07] MEDS: DOCUSATE SODIUM 100 MG CAPSULE PO SCH ×2 (07:57→21:30)
[2022-05-07] MEDS: PANTOPRAZOLE 40 MG VIAL IV SCH (08:02)
--- NOTE | 2022-05-07 08:27 | Internal Med Progress Note ---
SUBJECTIVE Subjective Patient information: Note initiated : 05/07/22 at 8:26 am Service Date, if different from initiated Date: [] Patient: Ilir Mejía 77 y/o M admitted on 05/06/22 for seizure. Chief Complaint: [] Interval history: Mr. Mejía is a 77 year old M history of seizures, hypertensions, depressions, questionable dementia, presenting with 1 day history of acute onset seizure activities. It was reported that last similar seizure activities episode was a few months ago. Patient forgot to take 6 antiseizure's medications yesterday evening. He will often forget to take his medications according to family. Earlier today he was weakness by family member to have tonic-clonic seizure activity lasting approximately 2 minutes. EMS called and gave the patient 1 dose of 5 mg IM Ativan, failed to break the seizure activities. A repeat 5 mg IM Ativan dose was given finally broke the seizure activities. Patient sent to ED for further evaluations. Patient still appears to be in postictal coma state. He is unable to carry a conversation with me. He is sleeping and cannot be aroused by either voice or painful stimuli. CT of the head without contrast no acute intracranial abnormalities. Keppra 1000 Mg IV one-time dose given in the ED. Admission request call for postictal confusions associated with recent seizure activity is likely due to medications noncompliant. 2/2: Patient still confused this morning. What ever question I ask him, he would only say "again again and again". No more reported seizure activities overnight since admissions. Serum lactic acid 4.3 yesterday evening. Continue IV Keppra 1000 mg twice daily. Ativan IV push as needed for seizure activities. Keep the patient n.p.o. with IV fluid infusions until patient is more awake and alert and will be performed bedside swallowing evaluations before resuming his oral medications and food/drink. Overall prognosis still guarded. Keep the patient in observation PCU with telemetry. 2/3 Family at bedside. Patient is alert and awake sitting in chair. However he is confused and not answering questions appropriately. Patient does seem fixated at times on things such as his shoulder. At times patient is clear in mentation and answering appropriately at other times he has not. 2/4 Home meds started yesterday. Per nurse patient seemed to have a little better night. This morning he still has difficulty expressing himself. Review of systems: Unable to gather given altered state Constitutional Vitals: Vital Signs Temp Pulse Resp BP Pulse Ox O2 Del Method O2 Flow Rate 98.5 F 50 L 15 133/78 95 Room Air 2 05/07/22 08:01 05/07/22 06:01 05/07/22 08:01 05/07/22 08:01 05/07/22 08:01 05/06/22 07:58 05/04/22 09:46 Period Temp Pulse Resp BP Sys/Overton Pulse Ox O2 Del Method O2 Flow Rate Last 24 Hr 98.2 F-99.8 F 50-68 13-22 103-172/67-95 95-100 Intake and Output 05/06/22 05/07/22 05/07/22 19:59 03:59 11:59 Intake Total 600 110 0 Output Total 094 336 2376 Balance 297 -141 -1270 Weight 80.966 kg 81.692 kg Intake & Output: Intake & Output 05/06/22 05/07/22 05/07/22 19:59 03:59 11:59 Intake Total 600 110 0 Output Total 289 367 7589 Balance 297 -141 -1270 Weight 80.966 kg 81.692 kg Intake: IV 110 Keppra 1,000 mg In Sodium 110 Chloride 0.9% 100 ml @ 200 mls/ hr IV Q12 [facility] Rx#:[id number] Oral 600 0 0 Output: Urine Catheter Amount 925 Void Amount 300 250 # of times incontinent of urine 3 1 0 Stool 345 Other: Meal Dinner Percent of Meal Consumed 100% 25% Feeding Ability Total Assistance Total Assistance Nourishment/Supplement name finished pudding from dinner with meds Urine Appearance Clear Clear Clear Urine Color Bright Yellow Dark Yellow Yellow Urine Odor Normal Normal Stool Size Small Stool Color Brown Stool Consistency Loose Liquid # Voids 1 0 # Bowel Movements 0 # of times incontinent of 1 0 Bowels Exam: General: Alert and awake, No acute Distress Eyes/N/T: EOMI, Head/Neck: neck supple, CV: RRR, 2/6SM, Pulm: Clear b/l, no wheezing/rhonchi/rales Abd: soft, nontender, +BS x4 Ext: no clubbing/cyanosis/edema Neuro: alert, follows simple commands, nods to some of my questions but does not verbalize answers. moves all extremities spontaneously. Skin: warm/dry OBJ DATA Labs 05/04/22 08:22 05/06/22 06:10 Labs: Abnormal Lab Results 05/06/22 05/04/22 05/04/22 06:10 14:42 14:12 RBC Hgb Hct Lymph % (Auto) Lymph # (Auto) ABG Methemoglobin VBG pO2 VBG O2 Saturation VBG Lactic Acid 4.3 H* Carboxyhemoglobin Calcium 8.0 L Total Protein 5.3 L Albumin 2.6 L Prolactin U Benzodiazepines Scrn Suspect positive A U Marijuana (THC) Screen Suspect positive A 05/04/22 05/04/22 05/04/22 14:12 12:26 10:15 RBC Hgb Hct Lymph % (Auto) Lymph # (Auto) ABG Methemoglobin 0.2 L VBG pO2 47.9 H VBG O2 Saturation 78.7 H VBG Lactic Acid 3.6 H Carboxyhemoglobin 4.5 H Calcium Total Protein Albumin Prolactin 16.2 H U Benzodiazepines Scrn U Marijuana (THC) Screen 05/04/22 08:22 RBC 3.73 L Hgb 10.9 L Hct 34.4 L Lymph % (Auto) 14.7 L Lymph # (Auto) 0.77 L ABG Methemoglobin VBG pO2 VBG O2 Saturation VBG Lactic Acid Carboxyhemoglobin Calcium Total Protein Albumin Prolactin U Benzodiazepines Scrn U Marijuana (THC) Screen Meds: Medications Albuterol/Ipratropium (Ipratropium/Albuterol 3 Ml Ampul.Neb) 3 ml NEB Q4HRT PRN PRN Reason: Wheezing Aspirin (Aspirin 81 Mg Tab.Chew) 81 mg PO DAILY [facility] Atorvastatin Calcium (Atorvastatin 20 Mg Tablet) 20 mg PO QHS [facility] Last Admin: 05/06/22 20:58 Dose: 20 mg Betamethasone Dipropion Augmented (Betamethasone Dipr Crm 0.05% 15gm Tube) 1 dose TOPICAL BID [facility] Last Admin: 05/06/22 21:02 Dose: Not Given Diazepam (Diazepam 2 Mg Tablet) 1 mg PO BID [facility] Last Admin: 05/06/22 20:58 Dose: 1 mg Divalproex Sodium (Divalproex Sodium 250 Mg Tablet) 250 mg PO BID [facility] Last Admin: 05/06/22 21:00 Dose: 250 mg Docusate Sodium (Docusate Sodium 100 Mg Capsule) 100 mg PO BID [facility] Last Admin: 05/07/22 07:57 Dose: Not Given Enoxaparin Sodium (Enoxaparin 40 Mg/0.4 Ml Syringe) 40 mg SQ DAILY [facility] Last Admin: 05/06/22 09:07 Dose: 40 mg Escitalopram Oxalate (Escitalopram 20 Mg Tablet) 20 mg PO QDAY [facility] Gabapentin (Gabapentin 100 Mg Capsule) [address] [facility] Last Admin: 05/06/22 20:57 Dose: 300 mg Hydralazine HCl (Hydralazine 20 Mg/Ml Vial) 10 mg IV Q4-6HP PRN PRN Reason: Hypertension Levetiracetam 1,000 mg/ Sodium (Chloride) 110 mls @ 200 mls/hr IV Q12 [facility] Last Infusion: 05/06/22 21:35 Dose: Infused Acetaminophen (Ofirmev) 650 mg in 65 mls @ 130 mls/hr IV Q6HP PRN; Protocol PRN Reason: PAIN/FEVER > 101 Last Infusion: 05/06/22 00:40 Dose: Infused Lactulose (Lactulose 20 Gm/30 Ml Oral.Angelika) 10 gm PO DAILYP PRN PRN Reason: Constipation Lidocaine (Lidocaine Patch) 1 patch TOPICAL QDAY [facility] Last Admin: 05/06/22 13:52 Dose: 1 patch Lorazepam (Lorazepam 2 Mg/Ml Vial) 2 mg IV Q1HP PRN PRN Reason: Seizure Activity Losartan Potassium (Losartan 25 Mg Tablet) 25 mg PO QDAY [facility] Misoprostol (Misoprostol 100 Mcg Tablet) 200 mcg PO BIDCC [facility] Last Admin: 05/06/22 17:30 Dose: 200 mcg Olanzapine (Olanzapine 5 Mg Tablet) 5 mg PO Q6HP PRN PRN Reason: Agitation Ondansetron HCl (Ondansetron 4 Mg/2 Ml Vial) 4 mg IV Q4HP PRN; Protocol PRN Reason: Nausea And Vomiting Pantoprazole Sodium (Pantoprazole 40 Mg Vial) 40 mg IV [facility] Last Admin: 05/07/22 08:02 Dose: 40 mg Quetiapine Fumarate (Quetiapine 25 Mg Tablet) [address] [facility] Last Admin: 05/06/22 21:00 Dose: 25 mg Senna (Sennosides 1 Tablet) 2 tab PO HSP PRN PRN Reason: Constipation Sodium Chloride (0.9 % Sodium Chloride 10 Ml Syringe) 10 ml IV Q8 [facility] Last Admin: 05/07/22 08:02 Dose: 10 ml ABG Interpretation ABG results: 05/04/22 10:15 ABG Methemoglobin 0.2 L VBG pH 7.36 VBG pCO2 47.5 VBG pO2 47.9 H VBG HCO3 26.2 VBG Total CO2 27.6 VBG O2 Saturation 78.7 H VBG Base Excess 0 A/P Narrative A/P Narrative: Assessment and Plans: *Post-ictal obtundation/confusion associated with recent tonic chronic seizure, likely medications noncompliant per family: -MRI with encephalomalacia/atrophy but no acute pathology -Neuro Status check q2hr -Drug screening: positive for benzodiazepine and marijuana -Keppra 1000mg IV BID; Ativan 2mg IV PRN seizure activities -restarted home meds *Encephalopathy, acute on chronic: seems to be more of expressive aphasia, as he comprehends simple commands -MRI with encephalomalacia/atrophy but no acute pathology -Likely acute worsening of his Dementia 2/2 recent prolong seizure at home. *Dementia, likely vascular: Outpatient dementia evaluation by PCP *Oropharyngeal Dysphagia: -seen by ST on level 4 *HTN/HLD: -restart po meds *Depression: restart PO med *h/o CVAx2: *Anxiety/depression: *GERD: *Anemia, chronic: *ppx: Lovenox / ppi Code status: DNI Prognosis: guarded Time Spent With Patient Time: Total time spent is greater than 50% in coordination of care (as documented) at patient's floor/unit and/or counseling patient: Subsequent: Total time with patient: 50 - 65 Minutes
[2022-05-07] MEDS: MISOPROSTOL 100 MCG TABLET PO SCH ×2 (09:17→17:10)
[2022-05-07] MEDS: ASPIRIN 81 MG TAB.CHEW PO SCH (09:17)
[2022-05-07] MEDS: LOSARTAN 25 MG TABLET PO SCH (09:18)
[2022-05-07] MEDS: DIAZEPAM 2 MG TABLET PO SCH ×2 (09:18→21:40)
[2022-05-07] MEDS: ESCITALOPRAM 20 MG TABLET PO SCH (09:18)
[2022-05-07] MEDS: levETIRAcetam 1,000 MG in 0.9 % SODIUM CHLORIDE 100 ML IV SCH ×2 (09:19→21:40)
[2022-05-07] MEDS: ENOXAPARIN 40 MG/0.4 ML SYRINGE SQ SCH (09:19)
[2022-05-07] MEDS: LIDOCAINE PATCH TOPICAL SCH (09:19)
[2022-05-07] MEDS: DIVALPROEX SODIUM 250 MG TABLET PO SCH ×2 (09:19→21:40)
[2022-05-07] MEDS: BETAMETHASONE DIPR CRM 0.05% 15GM TUBE TOPICAL SCH ×2 (09:20→21:41)
[2022-05-07] MEDS: ACETAMINOPHEN 650 MG/65 ML BAG IV PRN (19:42)
[2022-05-07] MEDS: GABAPENTIN 100 MG CAPSULE PO SCH (21:40)
[2022-05-07] MEDS: QUEtiapine 25 MG TABLET PO SCH (21:40)
[2022-05-07] MEDS: ATORVASTATIN 20 MG TABLET PO SCH (21:40)
[2022-05-07] MEDS: ARIPIPRAZOLE 5 MG TABLET PO SCH (21:43)
[2022-05-08] MEDS: 0.9 % SODIUM CHLORIDE 10 ML SYRINGE IV SCH ×3 (06:20→22:29)
[2022-05-08 06:47] LABS: Basophils # (Auto) 0.03 K/mcL (0.00-0.30); Basophils % (Auto) 0.7 % (0.0-2.0); Eosinophils # (Auto) 0.32 K/mcL (0.00-0.70); Eosinophils % (Auto) 7.3 % (0.0-7.0); Hematocrit 37.9 % (40.1-51.0); Hemoglobin 11.6 g/dL (13.7-17.5); Lymphocytes # (Auto) 1.53 K/mcL (1.50-4.80); Lymphocytes % (Auto) 34.7 % (15.5-49.0); Mean Cell Volume 96.9 fL (80.0-100.0); Mean Corpuscular HGB Conc 30.6 g/dL (31.0-36.0); Mean Platelet Volume 10.9 fL (8.8-12.5); Monocytes # (Auto) 0.36 K/mcL (0.10-0.90); Monocytes % (Auto) 8.2 % (1.0-12.0); Neutrophils % (Auto) 48.6 % (38.0-78.0); Platelet Count 121 K/mcL (140-440); RBC 3.91 M/mcL (4.63-6.08); Red Cell Distribution Width 14.6 % (11.5-14.5); WBC 4.4 K/mcL (4.5-11.0)
[2022-05-08 07:18] LABS: ALT/SGPT 7 U/L (<40); AST/SGOT 13 U/L (<40); Albumin 2.5 gm/dL (3.2-5.2); Alkaline Phosphatase 58 U/L (39-117); Bilirubin,Direct < 0.2 mg/dL (0-0.3); Bilirubin,Total 0.6 mg/dL (0.1-1.0); Blood Urea Nitrogen 13 mg/dL (8-23); Calcium 7.9 mg/dL (8.6-10.4); Carbon Dioxide 24 mmol/L (22-30); Chloride 108 mmol/L (96-108); Globulin 2.6 gm/dL (2.2-3.7); Glomerular Filtration Rate 81; Glucose 77 mg/dL (70-105); Lactate Dehydrogenase 178 U/L (135-225); Phosphorous 4.1 mg/dL (2.5-4.5); Triglycerides 77 mg/dL (<150); Uric Acid 4.9 mg/dL (2.5-8.0)
[2022-05-08] MEDS: PANTOPRAZOLE 40 MG VIAL IV SCH (07:57)
--- NOTE | 2022-05-08 08:12 | Internal Med Progress Note ---
SUBJECTIVE Subjective Patient information: Note initiated : 05/08/22 at 8:09 am Service Date, if different from initiated Date: [] Patient: Ilir Mejía 77 y/o M admitted on 05/06/22 for seizure. Chief Complaint: [] Interval history: Mr. Mejía is a 77 year old M history of seizures, hypertensions, depressions, questionable dementia, presenting with 1 day history of acute onset seizure activities. It was reported that last similar seizure activities episode was a few months ago. Patient forgot to take 6 antiseizure's medications yesterday evening. He will often forget to take his medications according to family. Earlier today he was weakness by family member to have tonic-clonic seizure activity lasting approximately 2 minutes. EMS called and gave the patient 1 dose of 5 mg IM Ativan, failed to break the seizure activities. A repeat 5 mg IM Ativan dose was given finally broke the seizure activities. Patient sent to ED for further evaluations. Patient still appears to be in postictal coma state. He is unable to carry a conversation with me. He is sleeping and cannot be aroused by either voice or painful stimuli. CT of the head without contrast no acute intracranial abnormalities. Keppra 1000 Mg IV one-time dose given in the ED. Admission request call for postictal confusions associated with recent seizure activity is likely due to medications noncompliant. 2/2: Patient still confused this morning. What ever question I ask him, he would only say "again again and again". No more reported seizure activities overnight since admissions. Serum lactic acid 4.3 yesterday evening. Continue IV Keppra 1000 mg twice daily. Ativan IV push as needed for seizure activities. Keep the patient n.p.o. with IV fluid infusions until patient is more awake and alert and will be performed bedside swallowing evaluations before resuming his oral medications and food/drink. Overall prognosis still guarded. Keep the patient in observation PCU with telemetry. 2/3 Family at bedside. Patient is alert and awake sitting in chair. However he is confused and not answering questions appropriately. Patient does seem fixated at times on things such as his shoulder. At times patient is clear in mentation and answering appropriately at other times he has not. 2/4 Home meds started yesterday. Per nurse patient seemed to have a little better night. This morning he still has difficulty expressing himself. 2/5 Patient doing well today. He is clear in his expression. He realizes that yesterday he felt like he could not quite express himself but was comprehending adequately. Case management for placement needs. Switch to remainder of his meds to oral Review of systems: Unable to gather given altered state Constitutional Vitals: Vital Signs Temp Pulse Resp BP Pulse Ox O2 Del Method O2 Flow Rate 98.5 F 54 L 13 120/78 98 Room Air 2 05/08/22 08:01 05/08/22 08:01 05/08/22 08:01 05/08/22 08:01 05/08/22 08:01 05/08/22 04:01 05/04/22 09:46 Period Temp Pulse Resp BP Sys/Overton Pulse Ox O2 Del Method O2 Flow Rate Last 24 Hr 98.2 F-99.6 F 50-87 93-149/51-100 94-100 Room Air-Room Air Intake and Output 05/07/22 05/08/22 05/08/22 19:59 03:59 11:59 Intake Total 520 175 Output Total 526 720 350 Balance -6 -545 -350 Weight 80.921 kg Intake & Output: Intake & Output 05/07/22 05/08/22 05/08/22 19:59 03:59 11:59 Intake Total 520 175 Output Total 526 720 350 Balance -6 -545 -350 Weight 80.921 kg Intake: Nourishment/Supplement quantity 100 (ml) IV 175 Keppra 1,000 mg In Sodium 110 Chloride 0.9% 100 ml @ 200 mls/ hr IV Q12 [facility] Rx#:[id number] Oral 420 Output: Void Amount 150 720 350 # of times incontinent of urine 1 Urine/Stool Mix 375 Other: Meal Dinner Percent of Meal Consumed 50% Feeding Ability Total Assistance Nourishment/Supplement name Ensure clear Urine Appearance Clear Clear Clear Urine Color Light Dorys Bright Yellow Dark Yellow Urine Odor Normal Stool Size Small Stool Color Drew Colored Stool Consistency Soft Loose # Bowel Movements 1 Exam: General: Alert and awake, No acute Distress Eyes/N/T: EOMI, Head/Neck: neck supple, CV: RRR, 2/6SM, Pulm: Clear b/l, no wheezing/rhonchi/rales Abd: soft, nontender, +BS x4 Ext: no clubbing/cyanosis/edema Neuro: alert, no focal deficits, answers questions appropriately moves all extremities spontaneously. Skin: warm/dry OBJ DATA Labs 05/08/22 05:55 05/08/22 05:55 Labs: Abnormal Lab Results 05/08/22 05/08/22 05/06/22 05:55 05:55 06:10 WBC 4.4 L RBC 3.91 L Hgb 11.6 L Hct 37.9 L MCHC 30.6 L RDW 14.6 H Plt Count 121 L Eos % (Auto) 7.3 H Calcium 7.9 L 8.0 L Total Protein 5.1 L 5.3 L Albumin 2.5 L 2.6 L Meds: Medications Albuterol/Ipratropium (Ipratropium/Albuterol 3 Ml Ampul.Neb) 3 ml NEB Q4HRT PRN PRN Reason: Wheezing Aspirin (Aspirin 81 Mg Tab.Chew) 81 mg PO DAILY [facility] Last Admin: 05/07/22 09:17 Dose: 81 mg Atorvastatin Calcium (Atorvastatin 20 Mg Tablet) 20 mg PO QHS [facility] Last Admin: 05/07/22 21:40 Dose: 20 mg Betamethasone Dipropion Augmented (Betamethasone Dipr Crm 0.05% 15gm Tube) 1 dose TOPICAL BID [facility] Last Admin: 05/07/22 21:41 Dose: Not Given Diazepam (Diazepam 2 Mg Tablet) 1 mg PO BID [facility] Last Admin: 05/07/22 21:40 Dose: 1 mg Divalproex Sodium (Divalproex Sodium 250 Mg Tablet) 250 mg PO BID [facility] Last Admin: 05/07/22 21:40 Dose: 250 mg Docusate Sodium (Docusate Sodium 100 Mg Capsule) 100 mg PO BID [facility] Last Admin: 05/07/22 21:30 Dose: Not Given Enoxaparin Sodium (Enoxaparin 40 Mg/0.4 Ml Syringe) 40 mg SQ DAILY [facility] Last Admin: 05/07/22 09:19 Dose: 40 mg Escitalopram Oxalate (Escitalopram 20 Mg Tablet) 20 mg PO QDAY [facility] Last Admin: 05/07/22 09:18 Dose: 20 mg Gabapentin (Gabapentin 100 Mg Capsule) 300 mg PO [facility] Last Admin: 05/07/22 21:40 Dose: 300 mg Hydralazine HCl (Hydralazine 20 Mg/Ml Vial) 10 mg IV Q4-6HP PRN PRN Reason: Hypertension Levetiracetam 1,000 mg/ Sodium (Chloride) 110 mls @ 200 mls/hr IV Q12 [facility] Last Infusion: 05/07/22 22:15 Dose: Infused Acetaminophen (Ofirmev) 650 mg in 65 mls @ 130 mls/hr IV Q6HP PRN; Protocol PRN Reason: PAIN/FEVER > 101 Last Infusion: 05/07/22 20:15 Dose: Infused Lactulose (Lactulose 20 Gm/30 Ml Oral.Angelika) 10 gm PO DAILYP PRN PRN Reason: Constipation Lidocaine (Lidocaine Patch) 1 patch TOPICAL QDAY [facility] Last Admin: 05/07/22 09:19 Dose: 1 patch Lorazepam (Lorazepam 2 Mg/Ml Vial) 2 mg IV Q1HP PRN PRN Reason: Seizure Activity Losartan Potassium (Losartan 25 Mg Tablet) 25 mg PO QDAY [facility] Last Admin: 05/07/22 09:18 Dose: 25 mg Misoprostol (Misoprostol 100 Mcg Tablet) 200 mcg PO BIDCC [facility] Last Admin: 05/07/22 17:10 Dose: 200 mcg Olanzapine (Olanzapine 5 Mg Tablet) 5 mg PO Q6HP PRN PRN Reason: Agitation Ondansetron HCl (Ondansetron 4 Mg/2 Ml Vial) 4 mg IV Q4HP PRN; Protocol PRN Reason: Nausea And Vomiting Pantoprazole Sodium (Pantoprazole 40 Mg Vial) 40 mg IV QAMAC [facility] Last Admin: 05/08/22 07:57 Dose: 40 mg Quetiapine Fumarate (Quetiapine 25 Mg Tablet) 25 mg PO HS [facility] Last Admin: 05/07/22 21:40 Dose: 25 mg Senna (Sennosides 1 Tablet) 2 tab PO HSP PRN PRN Reason: Constipation Sodium Chloride (0.9 % Sodium Chloride 10 Ml Syringe) 10 ml IV Q8 [facility] Last Admin: 05/08/22 06:20 Dose: 10 ml ABG Interpretation ABG results: 05/04/22 10:15 ABG Methemoglobin 0.2 L VBG pH 7.36 VBG pCO2 47.5 VBG pO2 47.9 H VBG HCO3 26.2 VBG Total CO2 27.6 VBG O2 Saturation 78.7 H VBG Base Excess 0 A/P Narrative A/P Narrative: Assessment and Plans: *Post-ictal obtundation/confusion associated with recent tonic chronic seizure, likely medications noncompliant per family: -MRI with encephalomalacia/atrophy but no acute pathology -Neuro Status -Drug screening: positive for benzodiazepine and marijuana -Keppra 1000mg IV BID; Ativan 2mg IV PRN seizure activities -restarted home meds *Encephalopathy, acute on chronic: Much improved today. Much more clear in his speech -seems to be more of expressive aphasia, as he comprehends simple commands -MRI with encephalomalacia/atrophy but no acute pathology -Likely acute worsening of his Dementia 2/2 recent prolong seizure at home. *Dementia, likely vascular: Outpatient dementia evaluation by PCP *Oropharyngeal Dysphagia: -seen by ST on level 4 *HTN/HLD: -restart po meds *Depression: restart PO med *h/o CVAx2: *Anxiety/depression: *GERD: *Anemia, chronic: *ppx: Lovenox / ppi Code status: DNI Prognosis: guarded Time Spent With Patient Time: Total time spent is greater than 50% in coordination of care (as documented) at patient's floor/unit and/or counseling patient: Subsequent: Total time with patient: 35 - 49 minutes
[2022-05-08] MEDS: ESCITALOPRAM 20 MG TABLET PO SCH (08:21)
[2022-05-08] MEDS: LOSARTAN 25 MG TABLET PO SCH (08:21)
[2022-05-08] MEDS: ASPIRIN 81 MG TAB.CHEW PO SCH (08:21)
[2022-05-08] MEDS: DIAZEPAM 2 MG TABLET PO SCH ×2 (08:22→21:21)
[2022-05-08] MEDS: DIVALPROEX SODIUM 250 MG TABLET PO SCH ×2 (08:22→21:21)
[2022-05-08] MEDS: MISOPROSTOL 100 MCG TABLET PO SCH ×2 (08:22→17:28)
[2022-05-08] MEDS: LIDOCAINE PATCH TOPICAL SCH (08:22)
[2022-05-08] MEDS: ENOXAPARIN 40 MG/0.4 ML SYRINGE SQ SCH (08:22)
[2022-05-08] MEDS: DOCUSATE SODIUM 100 MG CAPSULE PO SCH ×2 (08:23→21:21)
[2022-05-08] MEDS: levETIRAcetam 1,000 MG in 0.9 % SODIUM CHLORIDE 100 ML IV SCH ×2 (08:36→21:21)
[2022-05-08] MEDS: BETAMETHASONE DIPR CRM 0.05% 15GM TUBE TOPICAL SCH (08:39)
[2022-05-08] MEDS ORDERED: ACETAMINOPHEN 325 MG TABLET PO PRN (10:17)
[2022-05-08] MEDS: ATORVASTATIN 20 MG TABLET PO SCH (21:20)
[2022-05-08] MEDS: GABAPENTIN 100 MG CAPSULE PO SCH (21:20)
[2022-05-08] MEDS: QUEtiapine 25 MG TABLET PO SCH (21:21)
[2022-05-08] MEDS: ARIPIPRAZOLE 5 MG TABLET PO SCH (21:21)
[2022-05-09] MEDS: 0.9 % SODIUM CHLORIDE 10 ML SYRINGE IV SCH ×3 (05:31→20:31)
[2022-05-09] MEDS: PANTOPRAZOLE 40 MG TABLET PO SCH (07:43)
[2022-05-09] MEDS: MISOPROSTOL 100 MCG TABLET PO SCH ×2 (07:44→17:56)
[2022-05-09] MEDS: DIAZEPAM 2 MG TABLET PO SCH ×2 (09:20→20:20)
[2022-05-09] MEDS: DOCUSATE SODIUM 100 MG CAPSULE PO SCH ×2 (09:21→20:17)
[2022-05-09] MEDS: ESCITALOPRAM 20 MG TABLET PO SCH (09:21)
[2022-05-09] MEDS: ENOXAPARIN 40 MG/0.4 ML SYRINGE SQ SCH (09:21)
[2022-05-09] MEDS: LOSARTAN 25 MG TABLET PO SCH (09:21)
[2022-05-09] MEDS: DIVALPROEX SODIUM 250 MG TABLET PO SCH ×2 (09:21→20:17)
[2022-05-09] MEDS: ASPIRIN 81 MG TAB.CHEW PO SCH (09:21)
[2022-05-09] MEDS: LIDOCAINE PATCH TOPICAL SCH (09:21)
[2022-05-09] MEDS: levETIRAcetam 1,000 MG in 0.9 % SODIUM CHLORIDE 100 ML IV SCH ×2 (09:29→20:26)
--- NOTE | 2022-05-09 14:52 | Internal Med Progress Note ---
SUBJECTIVE Subjective Patient information: Note initiated : 05/09/22 at 2:50 pm Service Date, if different from initiated Date: [] Patient: Ilir Mejía 77 y/o M admitted on 05/06/22 for seizure. Chief Complaint: [] Interval history: Mr. Mejía is a 77 year old M history of seizures, hypertensions, depressions, questionable dementia, presenting with 1 day history of acute onset seizure activities. It was reported that last similar seizure activities episode was a few months ago. Patient forgot to take 6 antiseizure's medications yesterday evening. He will often forget to take his medications according to family. Earlier today he was weakness by family member to have tonic-clonic seizure activity lasting approximately 2 minutes. EMS called and gave the patient 1 dose of 5 mg IM Ativan, failed to break the seizure activities. A repeat 5 mg IM Ativan dose was given finally broke the seizure activities. Patient sent to ED for further evaluations. Patient still appears to be in postictal coma state. He is unable to carry a conversation with me. He is sleeping and cannot be aroused by either voice or painful stimuli. CT of the head without contrast no acute intracranial abnormalities. Keppra 1000 Mg IV one-time dose given in the ED. Admission request call for postictal confusions associated with recent seizure activity is likely due to medications noncompliant. 2/2: Patient still confused this morning. What ever question I ask him, he would only say "again again and again". No more reported seizure activities overnight since admissions. Serum lactic acid 4.3 yesterday evening. Continue IV Keppra 1000 mg twice daily. Ativan IV push as needed for seizure activities. Keep the patient n.p.o. with IV fluid infusions until patient is more awake and alert and will be performed bedside swallowing evaluations before resuming his oral medications and food/drink. Overall prognosis still guarded. Keep the patient in observation PCU with telemetry. 2/3 Family at bedside. Patient is alert and awake sitting in chair. However he is confused and not answering questions appropriately. Patient does seem fixated at times on things such as his shoulder. At times patient is clear in mentation and answering appropriately at other times he has not. 2/4 Home meds started yesterday. Per nurse patient seemed to have a little better night. This morning he still has difficulty expressing himself. 2/5 Patient doing well today. He is clear in his expression. He realizes that yesterday he felt like he could not quite express himself but was comprehending adequately. Case management for placement needs. Switch to remainder of his meds to oral 05/09 Patient doing well continues to feel better. Clear in Thought. Communicating appropriately with me. No new complaints. Working on placement. Review of Systems: denies headache/fever/chills/nausea/vomiting/chest or abdominal pain/cough/dyspnea/diarrhea. Otherwise see above. Constitutional Vitals: Vital Signs Temp Pulse Resp BP Pulse Ox O2 Del Method O2 Flow Rate 98.1 F 61 14 110/71 100 Room Air 2 05/09/22 14:13 05/09/22 14:13 05/09/22 14:13 05/09/22 14:13 05/09/22 14:13 05/09/22 14:13 05/04/22 09:46 Period Temp Pulse Resp BP Sys/Overton Pulse Ox O2 Del Method O2 Flow Rate Last 24 Hr 97.7 F-98.6 F 55-66 14-20 93-156/62-102 96-100 Room Air-Room Air Intake and Output 05/09/22 05/09/22 05/09/22 03:59 11:59 19:59 Intake Total 110 350 Output Total 400 525 Balance -290 -175 Intake & Output: Intake & Output 05/09/22 05/09/22 05/09/22 03:59 11:59 19:59 Intake Total 110 350 Output Total 400 525 Balance -290 -175 Intake: Nourishment/Supplement quantity 240 (ml) IV 110 110 Keppra 1,000 mg In Sodium 110 110 Chloride 0.9% 100 ml @ 200 mls/ hr IV Q12 [facility] Rx#:[id number] Output: Void Amount 400 525 Other: Meal Applesauce Breakfast Percent of Meal Consumed 100% 100% Feeding Ability Assist with Tray Set Up Assist with Tray Set Up Urine Appearance Clear Clear Urine Color Dark Yellow Yellow Yellow Urine Odor Normal Normal # Voids 1 1 Exam: General: Alert and awake, No acute Distress Eyes/N/T: EOMI, Head/Neck: neck supple, CV: RRR, 2/6SM, Pulm: Clear b/l, no wheezing/rhonchi/rales Abd: soft, nontender, +BS x4 Ext: no clubbing/cyanosis/edema Neuro: alert, no focal deficits, answers questions appropriately moves all extremities spontaneously. Skin: warm/dry OBJ DATA Labs 05/08/22 05:55 05/08/22 05:55 Labs: Abnormal Lab Results 05/08/22 05/08/22 05:55 05:55 WBC 4.4 L RBC 3.91 L Hgb 11.6 L Hct 37.9 L MCHC 30.6 L RDW 14.6 H Plt Count 121 L Eos % (Auto) 7.3 H Calcium 7.9 L Total Protein 5.1 L Albumin 2.5 L Meds: Medications Acetaminophen (Acetaminophen 325 Mg Tablet) 650 mg PO Q6HP PRN; Protocol PRN Reason: Per Pain Protocol Albuterol/Ipratropium (Ipratropium/Albuterol 3 Ml Ampul.Neb) 3 ml NEB Q4HRT PRN PRN Reason: Wheezing Aspirin (Aspirin 81 Mg Tab.Chew) 81 mg PO DAILY [facility] Last Admin: 05/09/22 09:21 Dose: 81 mg Atorvastatin Calcium (Atorvastatin 20 Mg Tablet) 20 mg PO QHS [facility] Last Admin: 05/08/22 21:20 Dose: 20 mg Diazepam (Diazepam 2 Mg Tablet) 1 mg PO BID [facility] Last Admin: 05/09/22 09:20 Dose: 1 mg Divalproex Sodium (Divalproex Sodium 250 Mg Tablet) 250 mg PO BID [facility] Last Admin: 05/09/22 09:21 Dose: 250 mg Docusate Sodium (Docusate Sodium 100 Mg Capsule) 100 mg PO BID [facility] Last Admin: 05/09/22 09:21 Dose: 100 mg Enoxaparin Sodium (Enoxaparin 40 Mg/0.4 Ml Syringe) 40 mg SQ DAILY [facility] Last Admin: 05/09/22 09:21 Dose: 40 mg Escitalopram Oxalate (Escitalopram 20 Mg Tablet) 20 mg PO QDAY [facility] Last Admin: 05/09/22 09:21 Dose: 20 mg Gabapentin (Gabapentin 100 Mg Capsule) 300 mg PO HS [facility] Last Admin: 05/08/22 21:20 Dose: 300 mg Hydralazine HCl (Hydralazine 20 Mg/Ml Vial) 10 mg IV Q4-6HP PRN PRN Reason: Hypertension Levetiracetam 1,000 mg/ Sodium (Chloride) 110 mls @ 200 mls/hr IV Q12 [facility] Last Infusion: 05/09/22 10:10 Dose: Infused Acetaminophen (Ofirmev) 650 mg in 65 mls @ 130 mls/hr IV Q6HP PRN; Protocol PRN Reason: PAIN/FEVER > 101 Last Infusion: 05/07/22 20:15 Dose: Infused Lactulose (Lactulose 20 Gm/30 Ml Oral.Angelika) 10 gm PO DAILYP PRN PRN Reason: Constipation Lidocaine (Lidocaine Patch) 1 patch TOPICAL QDAY [facility] Last Admin: 05/09/22 09:21 Dose: 1 patch Lorazepam (Lorazepam 2 Mg/Ml Vial) 2 mg IV Q1HP PRN PRN Reason: Seizure Activity Losartan Potassium (Losartan 25 Mg Tablet) 25 mg PO QDAY [facility] Last Admin: 05/09/22 09:21 Dose: 25 mg Misoprostol (Misoprostol 100 Mcg Tablet) 200 mcg PO BIDCC [facility] Last Admin: 05/09/22 07:44 Dose: 200 mcg Olanzapine (Olanzapine 5 Mg Tablet) 5 mg PO Q6HP PRN PRN Reason: Agitation Ondansetron HCl (Ondansetron 4 Mg/2 Ml Vial) 4 mg IV Q4HP PRN; Protocol PRN Reason: Nausea And Vomiting Pantoprazole Sodium (Pantoprazole 40 Mg Tablet) 40 mg PO QAMAC [facility] Last Admin: 05/09/22 07:43 Dose: 40 mg Quetiapine Fumarate (Quetiapine 25 Mg Tablet) 25 mg PO HS [facility] Last Admin: 05/08/22 21:21 Dose: 25 mg Senna (Sennosides 1 Tablet) 2 tab PO HSP PRN PRN Reason: Constipation Sodium Chloride (0.9 % Sodium Chloride 10 Ml Syringe) 10 ml IV Q8 [facility] Last Admin: 05/09/22 14:30 Dose: 10 ml ABG Interpretation ABG results: 05/04/22 10:15 ABG Methemoglobin 0.2 L VBG pH 7.36 VBG pCO2 47.5 VBG pO2 47.9 H VBG HCO3 26.2 VBG Total CO2 27.6 VBG O2 Saturation 78.7 H VBG Base Excess 0 A/P Narrative A/P Narrative: Assessment and Plans: *Post-ictal obtundation/confusion associated with recent tonic chronic seizure, likely medications noncompliant per family: -MRI with encephalomalacia/atrophy but no acute pathology -Drug screening: positive for benzodiazepine and marijuana -Keppra 1000mg IV BID; Ativan 2mg IV PRN seizure activities -restarted home meds *Encephalopathy, acute on chronic: Much improved today. Much more clear in his speech -seems to be more of expressive aphasia, as he comprehends simple commands -MRI with encephalomalacia/atrophy but no acute pathology -Likely acute worsening of his Dementia 2/2 recent prolong seizure at home. *Dementia, likely vascular: Outpatient dementia evaluation by PCP *Oropharyngeal Dysphagia: -seen by ST on level 4 *HTN/HLD: -restart po meds *Depression: restart PO med *h/o CVAx2: *Anxiety/depression: *GERD: *Anemia, chronic: *ppx: Lovenox / ppi Code status: DNI Time Spent With Patient Time: Total time spent is greater than 50% in coordination of care (as documented) at patient's floor/unit and/or counseling patient: Subsequent: Total time with patient: 35 - 49 minutes
[2022-05-09] MEDS: ARIPIPRAZOLE 5 MG TABLET PO SCH (20:17)
[2022-05-09] MEDS: ATORVASTATIN 20 MG TABLET PO SCH (20:17)
[2022-05-09] MEDS: GABAPENTIN 100 MG CAPSULE PO SCH (20:19)
[2022-05-09] MEDS: QUEtiapine 25 MG TABLET PO SCH (20:20)
[2022-05-10] MEDS: 0.9 % SODIUM CHLORIDE 10 ML SYRINGE IV SCH (07:26)
[2022-05-10] MEDS: PANTOPRAZOLE 40 MG TABLET PO SCH (07:27)
[2022-05-10] MEDS: levETIRAcetam 1,000 MG in 0.9 % SODIUM CHLORIDE 100 ML IV SCH (08:39)
[2022-05-10] MEDS: ENOXAPARIN 40 MG/0.4 ML SYRINGE SQ SCH (08:41)
[2022-05-10] MEDS: ASPIRIN 81 MG TAB.CHEW PO SCH (08:41)
[2022-05-10] MEDS: DIAZEPAM 2 MG TABLET PO SCH (08:41)
[2022-05-10] MEDS: DOCUSATE SODIUM 100 MG CAPSULE PO SCH (08:42)
[2022-05-10] MEDS: LOSARTAN 25 MG TABLET PO SCH (08:42)
[2022-05-10] MEDS: DIVALPROEX SODIUM 250 MG TABLET PO SCH (08:42)
[2022-05-10] MEDS: ESCITALOPRAM 20 MG TABLET PO SCH (08:42)
[2022-05-10] MEDS: MISOPROSTOL 100 MCG TABLET PO SCH (08:42)
[2022-05-10] MEDS: LIDOCAINE PATCH TOPICAL SCH (08:42)
[2022-05-12 16:34] LABS: Cannabinoid Confirmation Positive
== END 2022-05-10 09:30 | DRG 101 ==
LOC: ED 07:46 → ICU 07:46 → MEDSUR 05-08 13:34
PROVIDERS: ADMIT Internal Medicine; ATTEND Internal Medicine